=== PATIENT | male | born 1975 | race Caucasian/White ===

== ENCOUNTER → 2017-05-04 | Outpatient (CLI) | payer OTHER ==
--- NOTE | 2017-05-04 15:18 | CT ---
EXAMINATION TYPE: CT abdomen pelvis w con DATE OF EXAM: 05/04/2017 COMPARISON: NONE HISTORY: abdominal pain with diarrhea x10+ years. CT DLP: 1590 mGycm CONTRAST: CT scan of the abdomen and pelvis is performed with Oral Contrast and with IV Contrast, patient injec mirian with 100 mL of Omnipaque 300. FINDINGS: LUNG BASES-: No visible nodule. No infiltrate. LIVER/GB: No calcified gallstones. There is moderate hepatic steatosis. No space occupying hepatic lesion. Biliary tree is of normal caliber. PANCREAS: No inflammation. No distinct mass. SPLEEN: No splenic enlargement. No lesion seen. ADRENALS: No nodule. No thickening. KIDNEYS/BLADDER: No hydronephrosis. No nephrolithiasis. 1.2 cm cyst left kidney. Urinary bladder g rossly unremarkable. BOWEL: Normal appendix. Normal bowel caliber. No inflammation. GENITAL ORGANS: No gross abnormality. LYMPH NODES: No greater than 1cm abdominal or pelvic lymph nodes are appreciated. AORTA: No significant abnormality. OSSEOUS STRUCTURES: No significant abnormality is seen. OTHER: No significant additional abnormality is seen. IMPRESSION: 1. There is moderate hepatic steatosis.
--- NOTE | 2017-05-05 11:00 | ECHOF ---
Referral Reason:R10.9 abdominal pain MEASUREMENTS -------- HEIGHT: 182.9 cm WEIGHT: 99.8 kg BP: 125/79 RVIDd: 3.6 cm (< 3.3) IVSd: 1.1 cm (0.6 - 1.1) LVIDd: 5.0 cm (3.9 - 5.3) LVPWd: 1.1 cm (0.6 - 1.1) IVSs: 1.7 cm LVIDs: 3.6 cm LVPWs: 1.9 cm LA Diam: 3.7 cm (2.7 - 3.8) LAESV Index (A-L): 20.90 ml/m Ao Diam: 3.4 cm (2.0 - 3.7) AV Cusp: 2.6 cm (1.5 - 2.6) MV EXCURSION: 24.403 mm (> 18.000) MV EF SLOPE: 87 mm/s (70 - 150) EPSS: 0.6 cm MV E Vamsi: 0.88 m/s MV DecT: 172 ms MV A Vamsi: 0.68 m/s MV E/A Ratio: 1.29 RAP: 5.00 mmHg RVSP: 29.66 mmHg FINDINGS -------- Sinus rhythm. This was a technically good study. The left ventricular size is normal. There is borderline concentric left ventricular hypertrophy. Overall left ventricular systolic function is normal with, an EF between 55 - 60 %. The right ventricle is mildly enlarged. Normal LA size by volume 22+/-6 ml/m2. The right atrium is normal in size. The aortic valve is trileaflet and appears structurally normal. The mitral valve is normal. There is trace to mild mitral regurgitation. Mild tricuspid regurgitation present. Right ventricular systolic pressure is normal at < 35 mmHg. The pulmonic valve was not well visualized. There is no pulmonic regurgitation present. The aortic root size is normal. IVC Not well visulized. There is no pericardial effusion. CONCLUSIONS -------- 1. Sinus rhythm. 2. Right ventricular systolic pressure is normal at < 35 mmHg. 3. The pulmonic valve was not well visualized. 4. There is no pulmonic regurgitation present. 5. The aortic root size is normal. 6. IVC Not well visulized. 7. There is no pericardial effusion. 8. This was a technically good study. 9. There is borderline concentric left ventricular hypertrophy. 10. Overall left ventricular systolic function is normal with, an EF between 55 - 60 %. 11. The right ventricle is mildly enlarged. 12. Normal LA size by volume 22+/-6 ml/m2. 13. The aortic valve is trileaflet and appears structurally normal. 14. There is trace to mild mitral regurgitation. 15. Mild tricuspid regurgitation present. [employer]: Katia Villegas RDCS
== END | disposition home or self-care (01) ==
LOC: RADCTMAIN 14:29
PROVIDERS: ATTEND Family Medicine
DX: K76.0 Fatty (change of) liver, not elsewhere classified (principal); I08.1 Rheumatic disorders of both mitral and tricuspid valves
CPT/HCPCS: 93306; 74177; Q9967 ×2

== ENCOUNTER 2020-04-23 16:48 | Emergency (ER) | payer OTHER ==
[2020-04-23] MEDS ORDERED: MORPHINE SULFATE 4 MG/ML SYRINGE IV STA ×2 (16:57→18:53)
[2020-04-23] MEDS ORDERED: SODIUM CHLORIDE 0.9% 1,000 ML IV STA (16:57)
[2020-04-23] MEDS ORDERED: ONDANSETRON 4 MG/2 ML VIAL IVP STA (16:57)
[2020-04-23 17:24] LABS: Basophils # (A) 0.1 k/uL (0-0.2); Basophils % (A) 1 %; Eosinophils # (A) 0.1 k/uL (0-0.7); Eosinophils % (A) 1 %; HCT 51.9 % (39.0-53.0); HGB 16.1 gm/dL (13.0-17.5); Lymphocytes # (A) 1.2 k/uL (1.0-4.8); Lymphocytes % (A) 11 %; MCH 29.7 pg (25.0-35.0); MCV 95.7 fL (80.0-100.0); Mean Platelet Volume 8.3; Monocytes # (A) 0.4 k/uL (0-1.0); Monocytes % (A) 3 %; Neutrophils % (A) 83 %; Platelet Count 233 k/uL (150-450); RBC 5.42 m/uL (4.30-5.90); RDW 12.6 % (11.5-15.5); WBC 10.8 k/uL (3.8-10.6)
[2020-04-23 17:37] LABS: ALT 112 U/L (4-49); AST 62 U/L (17-59); African American GFR (CKD) >90 (>60 ml/min/1.73 sqM); Albumin 3.8 g/dL (3.5-5.0); Alkaline Phosphatase 71 U/L (38-126); Anion Gap 6 mmol/L; Blood Urea Nitrogen 12 mg/dL (9-20); Carbon Dioxide 24 mmol/L (22-30); Chloride 108 mmol/L (98-107); Glucose 177 mg/dL (74-99); Non-African American GFR(CKD) 79 (>60 ml/min/1.73 sqM); Potassium 4.1 mmol/L (3.5-5.1); Sodium 138 mmol/L (137-145); Total Bilirubin 0.9 mg/dL (0.2-1.3); Total Protein 5.9 g/dL (6.3-8.2)
--- NOTE | 2020-04-23 18:02 | US ---
EXAMINATION TYPE: US scrotum with doppler. Grayscale and color Doppler Duplex imaging performed of tiara steen scrotum. DATE OF EXAM: 04/23/2020 COMPARISON: CT 2017 CLINICAL HISTORY: pain. Groin pain x couple hours. EXAM MEASUREMENTS: TESTICLES: Right Testicle: 5.0 x 2.7 x 2.6 cm Left Testicle: 4.5 x 2.7 x 2.3 cm EPIDIDYMIS HEAD: Right Epididymis: 0.7 x 0.8 x 0.7 cm Left Epididymis: 0.7 x 1.3 x 1.2 cm Epididymal body and tail appear similar bilaterally, hypoechoic. Doppler performed to assess for testicular vascularity; bilateral color flow and waveforms are seen. Presence of hydroceles: Right: 0.6 x 0.5 x 0.5 cm. Presence of varicoceles: none seen 2 Anechoic areas seen adjacent to the left epididymal head- #1: 0.8 x 0.7 x 0.5 cm. #2: 1.4 x 1.3 x 1.2 cm. IMPRESSION: There is left side epididymal cysts. No testicular torsion or mass. No evidence of epidid ymitis.
[2020-04-23] MEDS ORDERED: KETOROLAC 30 MG/ML 1 ML VIAL IVP STA (19:30)
--- NOTE | 2020-04-23 19:31 | CT ---
EXAMINATION TYPE: CT abdomen pelvis w con DATE OF EXAM: 04/23/2020 COMPARISON: 05/04/2017 HISTORY: left sided abdominal pain CT DLP: 1357.6 mGycm Automated exposure control for dose reduction was used. CONTRAST: Performed with IV Contrast, patient injected with 100 mL of Isovue 300. There is mild subsegmental atelectasis at the lung bases. Heart size is normal. There is no pericardi al effusion. Liver spleen stomach pancreas gallbladder appear normal. Bile ducts are not dilated. There is no adre nal mass. Kidneys show satisfactory contrast opacification. There is a delayed left side pyelogram. T here is mild left-sided hydronephrosis. There is mild left-sided hydroureter. There is 2 cm cortical cyst lower pole left kidney. There is 3 mm calculus distal left ureter close to the urinary bladder. Bladder distends smoothly. There is no inguinal hernia. There is no free fluid in the pelvis. Appendi x is posterior and appears normal. There is no mesenteric edema. There is no ascites or free air. There is no bowel obstruction. There i s probably a 1 mm calculus medial left kidney. There is no retroperitoneal adenopathy. Lumbar vertebr a have normal alignment. I see no focal bone destruction. The bony pelvis appears intact. IMPRESSION: Obstructing small calculus distal left ureter with hydronephrosis and hydroureter. Fatty infiltration of the liver. Obstruction is new compared to old exam. Normal appendix.
[2020-04-23] MEDS ORDERED: TAMSULOSIN 0.4 MG CAP.ER.24H PO STA (19:40)
--- NOTE | 2020-04-23 19:43 | ED ---
General Adult HPI - General Source: patient, RN notes reviewed, old records reviewed Mode of arrival: wheelchair Limitations: no limitations <Khalif Hadley - Last Filed: 04/23/20 20:43> <Yuni Martins - Last Filed: 04/29/20 00:37> - General Chief complaint: Abdominal Pain Stated complaint: abd pain Time Seen by Provider: 04/23/20 16:54 - History of Present Illness Initial comments: 45-year-old male patient was ED for chief complaint of left lower quadrant pain as well as left-sided groin pain. Patient reports that the pain is radiating from the abdomen to the groin. He states that pain began a few hours ago. He reports nausea without emesis. Denies any vomiting or diarrhea. Denies any o ther complaints. Systemic: Pt denies fatigue, fever/chills, rash. Pt denies weakness, night sweats, weight loss. Neuro: Pt denies headache, visual disturbances, syncope or pre-syncope. HEENT: Pt denies ocular discharge or irritation, otalgia, rhinorrhea, pharyngitis or notable lymphadenopathy. Cardiopulmonary: Pt denies chest pain, SOB, heart palpitations, dyspnea on exertion. Abdominal/GI: Pt denies abdominal pain, n/v/d. : Pt denies dysuria, burning w/ urination, frequency/urgency. Denies new onset urinary or bowel incontinence. MSK: Pt denies myalgia, loss of strength or function in extremities. Neuro: Pt denies new onset weakness, paresthesias. (Khalif Hadley) - Related Data Previous Rx's Medication Instructions Recorded Tamsulosin [Flomax] 0.4 mg PO DAILY #10 cap 04/23/20 Acetaminophen with Codeine 1 tab PO Q6H PRN 3 Days #12 tab 04/27/20 [Tylenol w/codeine #3] Ketorolac [Toradol] 10 mg PO Q6HR #12 tab 04/27/20 Ondansetron [Zofran ODT] 4 mg PO Q8HR #12 tab 04/27/20 Polyethylene Glycol 3350 [Miralax] 17 gm PO DAILY #10 packet 04/27/20 Tamsulosin [Flomax] 0.4 mg PO DAILY #10 cap 04/27/20 Allergies Allergy/AdvReac Type Severity Reaction Status Date / Time No Known Allergies Allergy Verified 04/27/20 18:46 Review of Systems ROS Other: All systems not noted in ROS Statement are negative. <Khalif Hadley - Last Filed: 04/23/20 20:43> ROS Other: All systems not noted in ROS Statement are negative. <Yuni Martins - Last Filed: 04/29/20 00:37> ROS Statement: Those systems with pertinent positive or pertinent negative responses have been documented in the HPI. Past Medical History Past Medical History: No Reported History History of Any Multi-Drug Resistant Organisms: None Reported Additional Past Surgical History / Comment(s): SHOULDER SX Past Psychological History: No Psychological Hx Reported Smoking Status: Never smoker Past Alcohol Use History: None Reported Past Drug Use History: None Reported <Khalif Hadley - Last Filed: 04/23/20 20:43> General Exam Limitations: no limitations <Khalif Hadley - Last Filed: 04/23/20 20:43> - General Exam Comments Initial Comments: Constitutional: NAD, AOX3, Pt has pleasant affect. HEENT: NC/AT, trachea midline, neck supple, no lymphadenopathy. Posterior pharynx non erythematous, without exudates. External ears appear normal, without discharge. Mucous membranes moist. Eyes PERRLA, EOM intact. There is no scleral icterus. No pallor noted. Cardiopulmonary: RRR, no murmurs, rubs or gallops, no JVD noted. Lungs CTAB in a nterior and posterior jimenez. No peripheral edema. Abdominal exam: Abdomen soft and non-distended. Abdomen mildly tender to palpation in LLQ. No other areas of abdominal tenderness. Bowel sounds active in LLQ. No hepatosplenomegaly. No ecchymosis Neuro: CN II-XII grossly intact. No nuchal rigidity. No raccon eyes, no villalobos sign, no hemotympanum. No cervical spinal tenderness. MSK: No posterior calf tenderness bilaterally, homans sign negative bilaterally. Full active ROM in upper and lower extremities, 5/5 stregnth. : Testicles nontender palpation bilaterally. Creamesteric reflex intact. No skin changes. (Khalif Hadley) Course Vital Signs 04/23/20 04/23/20 16:51 20:58 Temperature 97.6 F 97.9 F Pulse Rate 79 68 Respiratory 16 18 Rate Blood Pressure 130/78 137/80 O2 Sat by Pulse 97 98 Oximetry Medical Decision Making - Lab Data Result diagrams: 04/23/20 17:15 04/23/20 17:15 <Khalif Hadley - Last Filed: 04/23/20 20:43> - Lab Data Result diagrams: 04/23/20 17:15 04/23/20 17:15 <Yuni Martins - Last Filed: 04/29/20 00:37> - Medical Decision Making 45-year-old male patient was ED chief complaint left lower quadrant left groin pain. Patient also had a stable, afebrile. Physical exam displayed left lower quadrant tenderness. Testicles are nontender, significant flight is intact. Patient reports that the pain is rather radiating down the testicles. Lymph investigations obtained. Monocytosis of 10.8. Mild elevated glucose. Mild transaminitis. UA doesdisplay hematuria. Scrotal ultrasound was obtained first. This displayed left-sided epididymal cyst. No testicular torsion or mass. No evidence of epididymitis. CT and pelvis displayed obstructing small calculi distal left ureter with hydronephrosis and hydroureter. Patient lfatty infiltrationof the liver. Patient symptoms are well controlled. Patient was discharged with analgesia and urology follow-up and Flomax. We'll return to ER if condition worsens. Case discussed with Dr. Martins. (Khalif Hadley) I was available for consultation in the emergency department. The history and physical exam were done by the midlevel provider. I was consulted for this avel ents care. I reviewed the case with the midlevel provider and based on their presentation of the patient, I agree with the assessment, medical decision making and plan of care as documented. Chart was dictated using [employer] dictation software. Attempts were made to correct any dictation errors however some typographical errors may persist. Patient was seen during a national state of emergency due to the Covid-19 pandemic. (Yuni Martins) - Lab Data Lab Results 04/23/20 04/23/20 04/23/20 Range/Units 17:15 17:15 17:15 WBC 10.8 H (3.8-10.6) k/uL RBC 5.42 (4.30-5.90) m/uL Hgb 16.1 (13.0-17.5) gm/dL Hct 51.9 (39.0-53.0) % MCV 95.7 (80.0-100.0) fL MCH 29.7 (25.0-35.0) pg MCHC 31.0 (31.0-37.0) g/dL RDW 12.6 (11.5-15.5) % Plt Count 233 (150-450) k/uL Neutrophils % 83 % Lymphocytes % 11 % Monocytes % 3 % Eosinophils % 1 % Basophils % 1 % Neutrophils # 9.0 H (1.3-7.7) k/uL Lymphocytes # 1.2 (1.0-4.8) k/uL Monocytes # 0.4 (0-1.0) k/uL Eosinophils # 0.1 (0-0.7) k/uL Basophils # 0.1 (0-0.2) k/uL Sodium 138 (137-145) mmol/L Potassium 4.1 (3.5-5.1) mmol/L Chloride 108 H (98-107) mmol/L Carbon Dioxide 24 (22-30) mmol/L Anion Gap 6 mmol/L BUN 12 (9-20) mg/dL Creatinine 1.13 (0.66-1.25) mg/dL Est GFR (CKD-EPI)AfAm >90 (>60 ml/min/1.73 sqM) Est GFR (CKD-EPI)NonAf 79 (>60 ml/min/1.73 sqM) Glucose 177 H (74-99) mg/dL Plasma Lactic Acid Jam 1.1 (0.7-2.0) mmol/L Calcium 9.0 (8.4-10.2) mg/dL Total Bilirubin 0.9 (0.2-1.3) mg/dL AST 62 H (17-59) U/L ALT 112 H (4-49) U/L Alkaline Phosphatase 71 (38-126) U/L Total Protein 5.9 L (6.3-8.2) g/dL Albumin 3.8 (3.5-5.0) g/dL Lipase 59 (23-300) U/L Urine Color Urine Appearance (Clear) Urine pH (5.0-8.0) Ur Specific [place] (1.001-1.035) Urine Protein (Negative) Urine Glucose (UA) (Negative) Urine Ketones (Negative) Urine Blood (Negative) Urine Nitrite (Negative) Urine Bilirubin (Negative) Urine Urobilinogen (<2.0) mg/dL Ur Leukocyte Esterase (Negative) Urine RBC (0-5) /hpf Urine WBC (0-5) /hpf Urine Mucus (None) /hpf 04/23/20 Range/Units 19:50 WBC (3.8-10.6) k/uL RBC (4.30-5.90) m/uL Hgb (13.0-17.5) gm/dL Hct (39.0-53.0) % MCV (80.0-100.0) fL MCH (25.0-35.0) pg MCHC (31.0-37.0) g/dL RDW (11.5-15.5) % Plt Count (150-450) k/uL Neutrophils % % Lymphocytes % % Monocytes % % Eosinophils % % Basophils % % Neutrophils # (1.3-7.7) k/uL Lymphocytes # (1.0-4.8) k/uL Monocytes # (0-1.0) k/uL Eosinophils # (0-0.7) k/uL Basophils # (0-0.2) k/uL Sodium (137-145) mmol/L Potassium (3.5-5.1) mmol/L Chloride (98-107) mmol/L Carbon Dioxide (22-30) mmol/L Anion Gap mmol/L BUN (9-20) mg/dL Creatinine (0.66-1.25) mg/dL Est GFR (CKD-EPI)AfAm (>60 ml/min/1.73 sqM) Est GFR (CKD-EPI)NonAf (>60 ml/min/1.73 sqM) Glucose (74-99) mg/dL Plasma Lactic Acid Jam (0.7-2.0) mmol/L Calcium (8.4-10.2) mg/dL Total Bilirubin (0.2-1.3) mg/dL AST (17-59) U/L ALT (4-49) U/L Alkaline Phosphatase (38-126) U/L Total Protein (6.3-8.2) g/dL Albumin (3.5-5.0) g/dL Lipase (23-300) U/L Urine Color Yellow Urine Appearance Clear (Clear) Urine pH 7.0 (5.0-8.0) Ur Specific [place] 1.032 (1.001-1.035) Urine Protein Negative (Negative) Urine Glucose (UA) Trace H (Negative) Urine Ketones 1+ H (Negative) Urine Blood Moderate H (Negative) Urine Nitrite Negative (Negative) Urine Bilirubin Negative (Negative) Urine Urobilinogen <2.0 (<2.0) mg/dL Ur Leukocyte Esterase Negative (Negative) Urine RBC >182 H (0-5) /hpf Urine WBC 1 (0-5) /hpf Urine Mucus Few H (None) /hpf Disposition Is patient prescribed a controlled substance at d/c from ED?: No <Khalif Hadley - Last Filed: 04/23/20 20:43> <Yuni Martins - Last Filed: 04/29/20 00:37> Clinical Impression: Ureteral calculi, Fatty liver, Elevated random blood glucose level Disposition: HOME SELF-CARE Condition: Stable Instructions (If sedation given, give patient instructions): Kidney Stones (ED) Additional Instructions: Follow-up with primary care provider tomorrow. Follow-up with urologist tomorrow. Take medications as directed. Use pain medication only as needed. Have recheck of your liver function tests as well as her blood sugar by her primary care provider. These are mildly elevated. Return to ER if condition worsens. Prescriptions: Tamsulosin [Flomax] 0.4 mg PO DAILY #10 cap Referrals: None,Stated [Primary Care Provider] - 1-2 days Anuel Chris [STAFF PHYSICIAN] - 1-2 days Tashi Josue MD [STAFF PHYSICIAN] - 1-2 days
[2020-04-23 20:09] LABS: Appearance,Urine Clear (Clear); Bilirubin,Urine Negative (Negative); Blood,Urine Moderate (Negative); Color,Urine Yellow; Glucose,Urine (UA) Trace (Negative); Ketones,Urine 1+ (Negative); Leukocyte Esterase,Urine Negative (Negative); Mucus,Urine Few /hpf; Nitrite,Urine Negative (Negative); Protein,Urine Negative (Negative); RBC,Urine >182 /hpf (0-5); Specific Gravity,Urine 1.032 (1.001-1.035); Urobilinogen,Urine <2.0 mg/dL (<2.0); WBC,Urine 1 /hpf (0-5)
[2020-04-23] MEDS ORDERED: ONDANSETRON 4 MG ODT STARTER PACK 2 TAB BTL PO STA (20:45)
[2020-04-23] MEDS ORDERED: ACET/COD 300 MG/30 MG STARTER PACK 6 TAB BTL PO STA (20:45)
[2020-04-23 20:59] VITALS: BP 137/80; PULSE 68; RESP 18; TEMP 97.9
== END 2020-04-23 20:59 | disposition home or self-care (01) ==
LOC: EC 16:48
DX: N13.2 Hydronephrosis with renal and ureteral calculous obstruction (principal); K76.0 Fatty (change of) liver, not elsewhere classified; R74.0 Nonspecific elevation of levels of transaminase and lactic acid dehydrogenase [LDH]; R73.9 Hyperglycemia, unspecified
CPT/HCPCS: 36415; 80053; 83605; 83690; 85025; 81001; 93975; 76870; 74177; 99285; 96374; 96375 ×2; 96376; 96361; J2270; J2405; J1885; S0119; Q9967

== ENCOUNTER 2020-04-27 18:37 | Emergency (ER) | payer OTHER ==
[2020-04-27 18:46] VITALS: TEMP 97.6
[2020-04-27] MEDS ORDERED: SODIUM CHLORIDE 0.9% 1,000 ML IV STA (19:30)
[2020-04-27] MEDS ORDERED: MORPHINE SULFATE 4 MG/ML SYRINGE IVP STA (19:30)
[2020-04-27] MEDS ORDERED: KETOROLAC 30 MG/ML 1 ML VIAL IVP STA (19:30)
[2020-04-27] MEDS ORDERED: MORPHINE SULFATE 2 MG/ML SYRINGE IVP STA (19:30)
[2020-04-27 19:49] LABS: Appearance,Urine Clear (Clear); Bilirubin,Urine Negative (Negative); Blood,Urine Moderate (Negative); Color,Urine Yellow; Glucose,Urine (UA) Negative (Negative); Ketones,Urine Negative (Negative); Leukocyte Esterase,Urine Negative (Negative); Mucus,Urine Many /hpf; Nitrite,Urine Negative (Negative); PH, Urine 5.5 (5.0-8.0); Protein,Urine Negative (Negative); RBC,Urine >182 /hpf (0-5); Specific Gravity,Urine 1.012 (1.001-1.035); Urobilinogen,Urine <2.0 mg/dL (<2.0); WBC,Urine 5 /hpf (0-5)
[2020-04-27 19:55] VITALS: PULSE 82; RESP 18
[2020-04-27 20:00] LABS: Basophils # (A) 0.1 k/uL (0-0.2); Basophils % (A) 1 %; Eosinophils # (A) 0.2 k/uL (0-0.7); Eosinophils % (A) 2 %; HCT 47.3 % (39.0-53.0); HGB 15.1 gm/dL (13.0-17.5); Lymphocytes # (A) 1.2 k/uL (1.0-4.8); Lymphocytes % (A) 12 %; MCH 30.7 pg (25.0-35.0); MCHC 31.9 g/dL (31.0-37.0); MCV 96.4 fL (80.0-100.0); Mean Platelet Volume 8.1; Monocytes # (A) 0.6 k/uL (0-1.0); Monocytes % (A) 5 %; Neutrophils # (A) 8.4 k/uL (1.3-7.7); Neutrophils % (A) 80 %; Platelet Count 205 k/uL (150-450); RBC 4.91 m/uL (4.30-5.90); RDW 12.3 % (11.5-15.5); WBC 10.5 k/uL (3.8-10.6)
[2020-04-27 20:09] LABS: ALT 97 U/L (4-49); AST 66 U/L (17-59); African American GFR (CKD) >90 (>60 ml/min/1.73 sqM); Alkaline Phosphatase 77 U/L (38-126); Amylase 54 U/L (30-110); Anion Gap 8 mmol/L; Blood Urea Nitrogen 10 mg/dL (9-20); Calcium 8.8 mg/dL (8.4-10.2); Carbon Dioxide 24 mmol/L (22-30); Chloride 106 mmol/L (98-107); Glucose 98 mg/dL (74-99); Non-African American GFR(CKD) >90 (>60 ml/min/1.73 sqM); Potassium 4.1 mmol/L (3.5-5.1); Sodium 138 mmol/L (137-145); Total Bilirubin 0.9 mg/dL (0.2-1.3); Total Protein 6.2 g/dL (6.3-8.2)
--- NOTE | 2020-04-27 20:15 | ED ---
Abdominal Pain HPI - General Chief Complaint: Abdominal Pain Stated Complaint: kidney stone Time Seen by Provider: 04/27/20 18:51 Source: patient, RN notes reviewed, old records reviewed Mode of arrival: wheelchair Limitations: no limitations - History of Present Illness Initial Comments: 45-year-old male presents very sensitive complaints of left-sided flank pain and groin discomfort. Patient was seen last week for similar complaints as diagnosed with a left ureter stone. He reports that he was pain-free and doing well up until today. Patient reports that he did pass her stones throughout the week. He was placed on Flomax and Tylenol or Motrin for pain. Patient states that he's been trying to have normal bowel movements and increasing his fiber and fruit prune juice and apple juice intake. He states he does feel quite bloated as well. Patient denies any vomiting. - Related Data Previous Rx's Medication Instructions Recorded Tamsulosin [Flomax] 0.4 mg PO DAILY #10 cap 04/23/20 Acetaminophen with Codeine 1 tab PO Q6H PRN 3 Days #12 tab 04/27/20 [Tylenol w/codeine #3] Ketorolac [Toradol] 10 mg PO Q6HR #12 tab 04/27/20 Ondansetron [Zofran ODT] 4 mg PO Q8HR #12 tab 04/27/20 Polyethylene Glycol 3350 [Miralax] 17 gm PO DAILY #10 packet 04/27/20 Tamsulosin [Flomax] 0.4 mg PO DAILY #10 cap 04/27/20 Allergies Allergy/AdvReac Type Severity Reaction Status Date / Time No Known Allergies Allergy Verified 04/27/20 18:46 Review of Systems ROS Statement: Those systems with pertinent positive or pertinent negative responses have been documented in the HPI. ROS Other: All systems not noted in ROS Statement are negative. Past Medical History Past Medical History: No Reported History History of Any Multi-Drug Resistant Organisms: None Reported Additional Past Surgical History / Comment(s): SHOULDER SX Past Psychological History: No Psychological Hx Reported Smoking Status: Never smoker Past Alcohol Use History: None Reported Past Drug Use History: None Reported General Exam - General Exam Comments Initial Comments: 45 year old male, no distress. Limitations: no limitations General appearance: alert, in no apparent distress Head exam: Present: atraumatic, normocephalic, normal inspection Eye exam: Present: normal appearance, PERRL, EOMI. Absent: scleral icterus, conjunctival injection, periorbital swelling ENT exam: Present: normal exam, mucous membranes moist Neck exam: Present: normal inspection. Absent: tenderness, meningismus, lymphadenopathy Respiratory exam: Present: normal lung sounds bilaterally. Absent: respiratory distress, wheezes, rales, rhonchi, stridor Cardiovascular Exam: Present: regular rate, normal rhythm, normal heart sounds. Absent: systolic murmur, diastolic murmur, rubs, gallop, clicks GI/Abdominal exam: Present: soft, tenderness (Left inguinal and lower quadrant tenderness no palpable masses or hernia.), normal bowel sounds. Absent: dist ended, guarding, rebound, rigid Back exam: Present: normal inspection Neurological exam: Present: alert, oriented X3, CN II-XII intact Course Vital Signs 04/27/20 04/27/20 04/27/20 18:42 19:54 20:54 Temperature 97.6 F 97.6 F Pulse Rate 68 82 82 Respiratory 16 18 18 Rate Blood Pressure 132/86 133/85 127/84 O2 Sat by Pulse 97 99 98 Oximetry Medical Decision Making - Medical Decision Making 45-year-old male presented to return today with left flank pain and groin pain. He was diagnosed with kidney stones last week. He was found to have a 1 mm stone retained in the kidney at that time on his CAT scan. Today Patient has evidence of hematuria. Labs are otherwise unremarkable. Discussed is likely passing a 1 mm stone that was found on previous CAT scan. KUB is unremarkable. I discussed discharging the Patient with a short course a temperature medication continue Flomax and pain medication. Discussed following up with urology. All questions were answered. - Lab Data Result diagrams: 04/27/20 19:51 04/27/20 19:51 Lab Results 04/27/20 04/27/20 04/27/20 Range/Units 19:21 19:51 19:51 WBC 10.5 (3.8-10.6) k/uL RBC 4.91 (4.30-5.90) m/uL Hgb 15.1 (13.0-17.5) gm/dL Hct 47.3 (39.0-53.0) % MCV 96.4 (80.0-100.0) fL MCH 30.7 (25.0-35.0) pg MCHC 31.9 (31.0-37.0) g/dL RDW 12.3 (11.5-15.5) % Plt Count 205 (150-450) k/uL Neutrophils % 80 % Lymphocytes % 12 % Monocytes % 5 % Eosinophils % 2 % Basophils % 1 % Neutrophils # 8.4 H (1.3-7.7) k/uL Lymphocytes # 1.2 (1.0-4.8) k/uL Monocytes # 0.6 (0-1.0) k/uL Eosinophils # 0.2 (0-0.7) k/uL Basophils # 0.1 (0-0.2) k/uL PT 9.8 (9.0-12.0) sec INR 0.9 (<1.2) APTT 21.3 L (22.0-30.0) sec Sodium (137-145) mmol/L Potassium (3.5-5.1) mmol/L Chloride (98-107) mmol/L Carbon Dioxide (22-30) mmol/L Anion Gap mmol/L BUN (9-20) mg/dL Creatinine (0.66-1.25) mg/dL Est GFR (CKD-EPI)AfAm (>60 ml/min/1.73 sqM) Est GFR (CKD-EPI)NonAf (>60 ml/min/1.73 sqM) Glucose (74-99) mg/dL Calcium (8.4-10.2) mg/dL Total Bilirubin (0.2-1.3) mg/dL AST (17-59) U/L ALT (4-49) U/L Alkaline Phosphatase (38-126) U/L Total Protein (6.3-8.2) g/dL Albumin (3.5-5.0) g/dL Amylase (30-110) U/L Lipase (23-300) U/L Urine Color Yellow Urine Appearance Clear (Clear) Urine pH 5.5 (5.0-8.0) Ur Specific [place] 1.012 (1.001-1.035) Urine Protein Negative (Negative) Urine Glucose (UA) Negative (Negative) Urine Ketones Negative (Negative) Urine Blood Moderate H (Negative) Urine Nitrite Negative (Negative) Urine Bilirubin Negative (Negative) Urine Urobilinogen <2.0 (<2.0) mg/dL Ur Leukocyte Esterase Negative (Negative) Urine RBC >182 H (0-5) /hpf Urine WBC 5 (0-5) /hpf Urine Mucus Many H (None) /hpf 04/27/20 Range/Units 19:51 WBC (3.8-10.6) k/uL RBC (4.30-5.90) m/uL Hgb (13.0-17.5) gm/dL Hct (39.0-53.0) % MCV (80.0-100.0) fL MCH (25.0-35.0) pg MCHC (31.0-37.0) g/dL RDW (11.5-15.5) % Plt Count (150-450) k/uL Neutrophils % % Lymphocytes % % Monocytes % % Eosinophils % % Basophils % % Neutrophils # (1.3-7.7) k/uL Lymphocytes # (1.0-4.8) k/uL Monocytes # (0-1.0) k/uL Eosinophils # (0-0.7) k/uL Basophils # (0-0.2) k/uL PT (9.0-12.0) sec INR (<1.2) APTT (22.0-30.0) sec Sodium 138 (137-145) mmol/L Potassium 4.1 (3.5-5.1) mmol/L Chloride 106 (98-107) mmol/L Carbon Dioxide 24 (22-30) mmol/L Anion Gap 8 mmol/L BUN 10 (9-20) mg/dL Creatinine 0.99 (0.66-1.25) mg/dL Est GFR (CKD-EPI)AfAm >90 (>60 ml/min/1.73 sqM) Est GFR (CKD-EPI)NonAf >90 (>60 ml/min/1.73 sqM) Glucose 98 (74-99) mg/dL Calcium 8.8 (8.4-10.2) mg/dL Total Bilirubin 0.9 (0.2-1.3) mg/dL AST 66 H (17-59) U/L ALT 97 H (4-49) U/L Alkaline Phosphatase 77 (38-126) U/L Total Protein 6.2 L (6.3-8.2) g/dL Albumin 4.0 (3.5-5.0) g/dL Amylase 54 (30-110) U/L Lipase 97 (23-300) U/L Urine Color Urine Appearance (Clear) Urine pH (5.0-8.0) Ur Specific [place] (1.001-1.035) Urine Protein (Negative) Urine Glucose (UA) (Negative) Urine Ketones (Negative) Urine Blood (Negative) Urine Nitrite (Negative) Urine Bilirubin (Negative) Urine Urobilinogen (<2.0) mg/dL Ur Leukocyte Esterase (Negative) Urine RBC (0-5) /hpf Urine WBC (0-5) /hpf Urine Mucus (None) /hpf 04/27/20 20:16 EKG performed shows normal sinus rhythm nonspecific intraventricular block. Abnormal EKG. Ventricular rate of 64 bpm. Verbal is 1:30 milliseconds. QRS duration is 134 ms. QT QTc is 464/470 ms. - Radiology Data Radiology results: report reviewed KUB shows a nonacute abdomen. CT shows There is a 3 mm calculus in the distal left ureter close to the urinary bladder. There is a 1 mm calculus in the left kidney. Disposition Clinical Impression: Hematuria, Flank pain, Ureteral stone Disposition: HOME SELF-CARE Condition: Good Instructions (If sedation given, give patient instructions): Hematuria (ED) Additional Instructions: Please use medication as discussed. Please follow up with family doctor if symp toms have not improved over the next two days. Please return to the emergency room if your symptoms increase or worsen or for any other concerns. Also recommended follow-up with urology. Continue to take prune juices and stool softeners for bowel movements. Prescriptions: Tamsulosin [Flomax] 0.4 mg PO DAILY #10 cap Polyethylene Glycol 3350 [Miralax] 17 gm PO DAILY #10 packet Ketorolac [Toradol] 10 mg PO Q6HR #12 tab Acetaminophen with Codeine [Tylenol w/codeine #3] 1 tab PO Q6H PRN 3 Days #12 tab PRN Reason: Pain Ondansetron [Zofran ODT] 4 mg PO Q8HR #12 tab Is patient prescribed a controlled substance at d/c from ED?: No Referrals: None,Stated [Primary Care Provider] - 1-2 days Tashi Josue MD [STAFF PHYSICIAN] - 1-2 days Time of Disposition: 20:45
[2020-04-27 20:24] LABS: INR 0.9 (<1.2); Prothrombin Time 9.8 sec (9.0-12.0)
[2020-04-27 20:28] LABS: Partial Thromboplastin Time 21.3 sec (22.0-30.0)
--- NOTE | 2020-04-27 20:32 | XR ---
EXAMINATION TYPE: XR KUB DATE OF EXAM: 04/27/2020 COMPARISON: NONE HISTORY: Left flank pain TECHNIQUE: 2 views upright FINDINGS: There is no sign of intestinal obstruction or pneumoperitoneum. Fecal pattern is normal. Th ere are no pathologic calcifications over the kidneys. Lung bases are clear. There is no evidence of a mass. IMPRESSION: Nonacute abdomen.
[2020-04-27 20:57] VITALS: BP 127/84
[2020-04-27] MEDS ORDERED: ONDANSETRON 4 MG ODT STARTER PACK 2 TAB BTL PO STA (21:01)
[2020-04-27] MEDS ORDERED: ACET/COD 300 MG/30 MG STARTER PACK 6 TAB BTL PO STA (21:02)
== END 2020-04-27 21:05 | disposition home or self-care (01) ==
LOC: EC 18:37
DX: N20.1 Calculus of ureter (principal)
CPT/HCPCS: 36415; 93005; 80053; 82150; 83690; 85025; 85610; 85730; 81001; 74018; 99284; 96374; 96375; 96361; J2270; J1885; S0119

== ENCOUNTER 2021-02-11 20:56 | Inpatient (IN) | payer OTHER ==
[2021-02-11] MEDS ORDERED: KETOROLAC 15 MG/ML 1 ML VIAL IVP STA (21:57)
[2021-02-11] MEDS ORDERED: ACETAMINOPHEN TAB 500 MG TAB PO STA (21:57)
[2021-02-11] MEDS ORDERED: ALBUTEROL HFA INHALER INHALATION STA (21:57)
[2021-02-11] MEDS ORDERED: DEXAMETHASONE SOD PHOSPHATE 10 MG/ML 1 ML VIAL IV STA (21:57)
[2021-02-11] MEDS ORDERED: SODIUM CHLORIDE 0.9% 1,000 ML IV STA (21:57)
--- NOTE | 2021-02-11 22:11 | ED ---
SOB HPI - General Chief Complaint: Shortness of Breath Stated Complaint: COVID+,SOB Time Seen by Provider: 02/11/21 21:52 Source: patient, RN notes reviewed, old records reviewed Mode of arrival: ambulatory Limitations: no limitations - History of Present Illness Initial Comments: This is a 46-year-old male DF for evaluation patient believes she is about 10-12 days of shortness of breath weakness not feeling well believes he does have coronavirus. MD Complaint: shortness of breath -: week(s) Radiation: back Severity: severe Severity scale (1-10): 9 Quality: dull Consistency: constant Improves With: nothing Worsens With: exertion, movement, coughing, inspiration Known History Of: other (none) Context: recent illness (suspects COVID) Associated Symptoms: cough, sputum production, nausea/vomiting Treatments Prior to Arrival: oxygen - Related Data Home Medications Medication Instructions Recorded Confirmed Ascorbic Acid [Vitamin C] 1,000 mg PO DAILY 02/11/21 02/11/21 Allergies Allergy/AdvReac Type Severity Reaction Status Date / Time No Known Allergies Allergy Verified 02/11/21 22:21 Review of Systems ROS Statement: Those systems with pertinent positive or pertinent negative responses have been documented in the HPI. ROS Other: All systems not noted in ROS Statement are negative. Past Medical History Past Medical History: No Reported History History of Any Multi-Drug Resistant Organisms: None Reported Additional Past Surgical History / Comment(s): SHOULDER SX Past Psychological History: No Psychological Hx Reported Smoking Status: Never smoker Past Alcohol Use History: None Reported Past Drug Use History: None Reported General Exam Limitations: no limitations General appearance: alert, anxious, lethargic, in distress Head exam: Present: atraumatic, normocephalic, normal inspection Eye exam: Present: normal appearance, PERRL, EOMI. Absent: scleral icterus, conjunctival injection, periorbital swelling ENT exam: Present: normal exam, mucous membranes moist Neck exam: Present: normal inspection. Absent: tenderness, meningismus, lymphadenopathy Respiratory exam: Present: respiratory distress, accessory muscle use, decreased breath sounds, prolonged expiratory. Absent: wheezes, rales, rhonchi, stridor Cardiovascular Exam: Present: normal rhythm, tachycardia, normal heart sounds. Absent: systolic murmur, diastolic murmur, rubs, gallop, clicks GI/Abdominal exam: Present: soft, normal bowel sounds. Absent: distended, tende rness, guarding, rebound, rigid Extremities exam: Present: normal inspection, full ROM, normal capillary refill. Absent: tenderness, pedal edema, joint swelling, calf tenderness Back exam: Present: normal inspection Neurological exam: Present: alert, oriented X3, CN II-XII intact Psychiatric exam: Present: normal affect, normal mood Skin exam: Present: warm, dry, intact, normal color. Absent: rash Course Vital Signs 02/11/21 02/11/21 02/11/21 21:20 21:59 23:00 Temperature 98.1 F 100.4 F H Pulse Rate 133 H 115 H Respiratory 26 H 26 H 20 Rate Blood Pressure 134/80 134/88 O2 Sat by Pulse 84 L 93 L Oximetry - Reevaluation(s) Reevaluation #1: 02/11/21 22:09 Medical record is reviewed Reevaluation #2: 02/12/21 00:57 Oxygen improved with supplemental to the patient still remains in severe distress Reevaluation #3: 02/12/21 00:58 A shunt placed on supplemental O2 and maintaining oxygen saturation - Consultations Consultation #1: Spoke with sound who will admit this patient Medical Decision Making - Medical Decision Making 46 male is coronavirus positive coronavirus with pneumonia and hypoxia. Patient will be admitted for supportive care - Lab Data Result diagrams: 02/11/21 22:40 02/11/21 22:40 Lab Results 02/11/21 02/11/21 02/11/21 Range/Units 21:41 22:40 22:40 WBC 13.2 H (3.8-10.6) k/uL RBC 4.86 (4.30-5.90) m/uL Hgb 14.2 (13.0-17.5) gm/dL Hct 46.2 (39.0-53.0) % MCV 95.2 (80.0-100.0) fL MCH 29.2 (25.0-35.0) pg MCHC 30.7 L (31.0-37.0) g/dL RDW 14.2 (11.5-15.5) % Plt Count 715 H (150-450) k/uL MPV 7.4 Neutrophils % 84 % Lymphocytes % 10 % Monocytes % 4 % Eosinophils % 0 % Basophils % 1 % Neutrophils # 11.0 H (1.3-7.7) k/uL Lymphocytes # 1.3 (1.0-4.8) k/uL Monocytes # 0.6 (0-1.0) k/uL Eosinophils # 0.0 (0-0.7) k/uL Basophils # 0.1 (0-0.2) k/uL Hypochromasia Slight PT 10.3 (9.0-12.0) sec INR 1.0 (<1.2) APTT 22.3 (22.0-30.0) sec D-Dimer 2.01 H (<0.60) mg/L FEU Sodium (137-145) mmol/L Potassium (3.5-5.1) mmol/L Chloride (98-107) mmol/L Carbon Dioxide (22-30) mmol/L Anion Gap mmol/L BUN (9-20) mg/dL Creatinine (0.66-1.25) mg/dL Est GFR (CKD-EPI)AfAm (>60 ml/min/1.73 sqM) Est GFR (CKD-EPI)NonAf (>60 ml/min/1.73 sqM) Glucose (74-99) mg/dL Plasma Lactic Acid Jam (0.7-2.0) mmol/L Calcium (8.4-10.2) mg/dL Magnesium (1.6-2.3) mg/dL Total Bilirubin (0.2-1.3) mg/dL AST (17-59) U/L ALT (4-49) U/L Alkaline Phosphatase (38-126) U/L Lactate Dehydrogenase (313-618) U/L C-Reactive Protein (<1.0) mg/dL Total Protein (6.3-8.2) g/dL Albumin (3.5-5.0) g/dL Influenza Type A (PCR) Not Detected (Not Detectd) Influenza Type B (PCR) Not Detected (Not Detectd) RSV (PCR) Not Detected (Not Detectd) SARS-CoV-2 (PCR) Not Detected (Not Detectd) 02/11/21 02/11/21 Range/Units 22:40 22:40 WBC (3.8-10.6) k/uL RBC (4.30-5.90) m/uL Hgb (13.0-17.5) gm/dL Hct (39.0-53.0) % MCV (80.0-100.0) fL MCH (25.0-35.0) pg MCHC (31.0-37.0) g/dL RDW (11.5-15.5) % Plt Count (150-450) k/uL MPV Neutrophils % % Lymphocytes % % Monocytes % % Eosinophils % % Basophils % % Neutrophils # (1.3-7.7) k/uL Lymphocytes # (1.0-4.8) k/uL Monocytes # (0-1.0) k/uL Eosinophils # (0-0.7) k/uL Basophils # (0-0.2) k/uL Hypochromasia PT (9.0-12.0) sec INR (<1.2) APTT (22.0-30.0) sec D-Dimer (<0.60) mg/L FEU Sodium 135 L (137-145) mmol/L Potassium 4.2 (3.5-5.1) mmol/L Chloride 100 (98-107) mmol/L Carbon Dioxide 25 (22-30) mmol/L Anion Gap 10 mmol/L BUN 15 (9-20) mg/dL Creatinine 0.71 (0.66-1.25) mg/dL Est GFR (CKD-EPI)AfAm >90 (>60 ml/min/1.73 sqM) Est GFR (CKD-EPI)NonAf >90 (>60 ml/min/1.73 sqM) Glucose 237 H (74-99) mg/dL Plasma Lactic Acid Jam 2.4 H* (0.7-2.0) mmol/L Calcium 8.1 L (8.4-10.2) mg/dL Magnesium 2.3 (1.6-2.3) mg/dL Total Bilirubin 0.7 (0.2-1.3) mg/dL AST 71 H (17-59) U/L ALT 115 H (4-49) U/L Alkaline Phosphatase 260 H (38-126) U/L Lactate Dehydrogenase 1544 H (313-618) U/L C-Reactive Protein 4.0 H (<1.0) mg/dL Total Protein 6.9 (6.3-8.2) g/dL Albumin 3.3 L (3.5-5.0) g/dL Influenza Type A (PCR) (Not Detectd) Influenza Type B (PCR) (Not Detectd) RSV (PCR) (Not Detectd) SARS-CoV-2 (PCR) (Not Detectd) - EKG Data -: EKG Interpreted by Me (EKG shows sinus tachycardia 131 MN 124 QRS 120 QTc 478) - Radiology Data Radiology results: report reviewed (Chest x-ray significant for are type pneu monia consistent with coronavirus symptoms. CTA pending), image reviewed Critical Care Time Critical Care Time: Yes Total Critical Care Time: 31 Disposition Clinical Impression: Acute respiratory failure, Hypoxia, Coronavirus infection, Pneumonia due to COVID-19 virus Disposition: ADMITTED IP TO THIS HOSP Condition: Serious Is patient prescribed a controlled substance at d/c from ED?: No Referrals: None,Stated [Primary Care Provider] - 1-2 days
--- NOTE | 2021-02-11 22:13 | XR ---
EXAMINATION TYPE: XR chest 1V portable DATE OF EXAM: 02/11/2021 COMPARISON: NONE HISTORY: Short of breath TECHNIQUE: Single view FINDINGS: There is extensive bilateral pulmonary airspace infiltrates. This is more severe in the lef t midlung and the right upper lobe. Heart size is normal. There is no pleural effusion. IMPRESSION: Extensive pulmonary infiltrates consistent with RDS.
[2021-02-11 22:56] LABS: Basophils # (A) 0.1 k/uL (0-0.2); Basophils % (A) 1 %; Eosinophils % (A) 0 %; HCT 46.2 % (39.0-53.0); HGB 14.2 gm/dL (13.0-17.5); Hypochromasia Slight; Lymphocytes # (A) 1.3 k/uL (1.0-4.8); Lymphocytes % (A) 10 %; MCH 29.2 pg (25.0-35.0); MCHC 30.7 g/dL (31.0-37.0); MCV 95.2 fL (80.0-100.0); Mean Platelet Volume 7.4; Monocytes # (A) 0.6 k/uL (0-1.0); Monocytes % (A) 4 %; Neutrophils % (A) 84 %; Platelet Count 715 k/uL (150-450); RBC 4.86 m/uL (4.30-5.90); RDW 14.2 % (11.5-15.5); WBC 13.2 k/uL (3.8-10.6)
[2021-02-11 22:57] LABS: ALT 115 U/L (4-49); AST 71 U/L (17-59); African American GFR (CKD) >90 (>60 ml/min/1.73 sqM); Albumin 3.3 g/dL (3.5-5.0); Alkaline Phosphatase 260 U/L (38-126); Anion Gap 10 mmol/L; Blood Urea Nitrogen 15 mg/dL (9-20); Calcium 8.1 mg/dL (8.4-10.2); Carbon Dioxide 25 mmol/L (22-30); Chloride 100 mmol/L (98-107); Glucose 237 mg/dL (74-99); LDH 1544 U/L (313-618); Magnesium 2.3 mg/dL (1.6-2.3); Non-African American GFR(CKD) >90 (>60 ml/min/1.73 sqM); Potassium 4.2 mmol/L (3.5-5.1); Sodium 135 mmol/L (137-145); Total Bilirubin 0.7 mg/dL (0.2-1.3); Total Protein 6.9 g/dL (6.3-8.2)
[2021-02-11 23:04] LABS: Partial Thromboplastin Time 22.3 sec (22.0-30.0); Prothrombin Time 10.3 sec (9.0-12.0)
[2021-02-11 23:31] LABS: D-Dimer 2.01 mg/L FEU (<0.60)
[2021-02-12] MEDS ORDERED: ONDANSETRON 4 MG/2 ML VIAL IVP PRN (00:55)
[2021-02-12] MEDS ORDERED: NALOXONE 0.4 MG/ML 1 ML VIAL IV PRN (00:55)
[2021-02-12] MEDS ORDERED: IBUPROFEN 400 MG TAB PO PRN (00:55)
[2021-02-12] MEDS: SODIUM CHLORIDE 0.9% 1,000 ML IV SCH ×2 (02:00→12:26)
--- NOTE | 2021-02-12 02:32 | CT ---
EXAM: CT Angiography Chest With Intravenous Contrast CLINICAL HISTORY: ITS.REASON CT Reason: PE TECHNIQUE: Axial computed tomographic angiography images of the chest with intravenous contrast. CTDI is 16.67 mGy and DLP is 532.5 mGy-cm. This CT exam was performed using one or more of the following dose reduction techniques: automated exposure control, adjustment of the mA and/or kV according to patient size, and/or use of iterative reconstruction technique. MIP reconstructed images were created and reviewed. COMPARISON: No relevant prior studies available. FINDINGS: Pulmonary arteries: No evidence of pulmonary emboli. Aorta: No acute findings. No thoracic aortic aneurysm. Lungs: Severe bilateral pulmonary infiltration consistent with pneumonia. No mass. Pleural space: Unremarkable. No significant effusion. No pneumothorax. Heart: Unremarkable. No cardiomegaly. No significant pericardial effusion. No evidence of RV dysfunction. Bones/joints: No acute fracture. No dislocation. Soft tissues: Unremarkable. Lymph nodes: Unremarkable. No enlarged lymph nodes. IMPRESSION: 1. Severe bilateral pulmonary infiltration consistent with pneumonia. 2. No evidence of pulmonary emboli.
[2021-02-12] MEDS ORDERED: ACETAMINOPHEN TAB 325 MG TAB PO PRN (04:52)
--- NOTE | 2021-02-12 04:53 | P.HPIM ---
History of Present Illness H&P Date: 02/12/21 Patient is a 46-year-old male with no known PMH who presented to the emergency room with complaints of shortness of breath and decreased exercise tolerance. The patient reports that he was initially diagnosed with coronavirus 2 weeks ago and after a few days of fever, he subsequently felt well until about 34 days ago when symptoms gradually worsened again. He reports shortness of breath, signifi cantly reduced exercise tolerance, feeling short of breath with minimal exertion. He denied additional complaints. He denied chest discomfort, nausea, vomiting, fever, chills, cough, diarrhea, abdominal pain, dizziness. In the emergency room, chest CTA revealed severe bilateral pulmonary infiltrates with EKG showing sinus tachycardia at 131 bpm. Laboratory evaluation remarkable for leukocytosis of 13.2, platelets 715, lactic acid 2.4, glucose 237, LDH 1544, troponin less than 0.012, and CRP 4.0. Review of Systems Pertinent positives and negatives as discussed in HPI, a complete review of systems was performed and all other systems are negative. Past Medical History Past Medical History: No Reported History History of Any Multi-Drug Resistant Organisms: None Reported Additional Past Surgical History / Comment(s): SHOULDER SX Past Psychological History: No Psychological Hx Reported Smoking Status: Never smoker Past Alcohol Use History: None Reported Past Drug Use History: None Reported Medications and Allergies Home Medications Medication Instructions Recorded Confirmed Type Ascorbic Acid [Vitamin C] 1,000 mg PO DAILY 02/11/21 02/11/21 History Allergies Allergy/AdvReac Type Severity Reaction Status Date / Time No Known Allergies Allergy Verified 02/11/21 22:21 Physical Exam Vitals: Vital Signs Temp Pulse Resp BP Pulse Ox 02/12/21 04:00 77 22 118/80 98 02/12/21 03:46 84 22 116/82 97 02/12/21 01:49 93 24 130/84 96 02/12/21 01:00 97 24 136/80 98 02/12/21 00:00 90 24 124/84 98 02/11/21 23:00 100.4 F H 115 H 20 134/88 93 L 02/11/21 21:59 26 H 02/11/21 21:20 98.1 F 133 H 26 H 134/80 84 L Intake and Output 02/11/21 02/11/21 02/12/21 14:59 22:59 06:59 Other: Weight 95.254 kg General: non toxic, no distress, appears at stated age, overweight Derm: no unusual rashes/lesions no unusual ecchymoses, warm, dry Head: atraumatic, normocephalic, symmetric Eyes: EOMI, no lid lag, anicteric sclera, pupils equal round reactive to light ENT: Nose and ears atraumatic, no thrush, no pharyngeal erythema Neck: No thyromegaly, no cervical lymphadenopathy, trachea midline, supple Mouth: no lip lesion, mucus membranes moist Cardiovascular: S1S2 reg, no murmur, positive posterior tibial pulse bilateral, no edema, capillary refill less than 2 seconds Lungs: Bilateral rhonchi and rales, no wheezing appreciated, no accessory muscle use Abdominal: soft, nontender to palpation, no guarding, no appreciable organomegaly, normal bowel sounds Ext: no gross muscle atrophy, muscle strength 5 out of 5 in all 4 extremities g rossly, no contractures, Neuro: CN II-XI grossly intact, light touch intact all 4 extremities, finger to nose within normal limits, Psych: Alert, oriented, appropriate affect Results CBC & Chem 7: 02/11/21 22:40 02/11/21 22:40 Labs: Abnormal Lab Results - Last 24 Hours (Table) 02/11/21 02/11/21 02/11/21 Range/Units 22:40 22:40 22:40 WBC 13.2 H (3.8-10.6) k/uL MCHC 30.7 L (31.0-37.0) g/dL Plt Count 715 H (150-450) k/uL Neutrophils # 11.0 H (1.3-7.7) k/uL D-Dimer 2.01 H (<0.60) mg/L FEU Sodium 135 L (137-145) mmol/L Glucose 237 H (74-99) mg/dL Plasma Lactic Acid Jam (0.7-2.0) mmol/L Calcium 8.1 L (8.4-10.2) mg/dL AST 71 H (17-59) U/L ALT 115 H (4-49) U/L Alkaline Phosphatase 260 H (38-126) U/L Lactate Dehydrogenase 1544 H (313-618) U/L C-Reactive Protein 4.0 H (<1.0) mg/dL Albumin 3.3 L (3.5-5.0) g/dL 02/11/21 Range/Units 22:40 WBC (3.8-10.6) k/uL MCHC (31.0-37.0) g/dL Plt Count (150-450) k/uL Neutrophils # (1.3-7.7) k/uL D-Dimer (<0.60) mg/L FEU Sodium (137-145) mmol/L Glucose (74-99) mg/dL Plasma Lactic Acid Jam 2.4 H* (0.7-2.0) mmol/L Calcium (8.4-10.2) mg/dL AST (17-59) U/L ALT (4-49) U/L Alkaline Phosphatase (38-126) U/L Lactate Dehydrogenase (313-618) U/L C-Reactive Protein (<1.0) mg/dL Albumin (3.5-5.0) g/dL Assessment and Plan Plan: COVID-19 pneumonitis with acute hypoxic respiratory failure -Supplemental oxygen -Monitor inflammatory markers -Decadron -Check pro calcitonin -Vitamin C, zinc, vitamin D, melatonin Hyperglycemia -Check A1c Lactic acidosis -Monitor to resolution DVT prophylaxis -Lovenox The patient is admitted with an anticipated greater than 2 midnight stay for evaluation of COVID pneumonia CODE STATUS: Full Code Discussed with: Patient Anticipated discharge date: 2-[address]: Home A total of 35 minutes was spent on the care of this complex patient more than 50% of the time was spent in counseling and care coordination.
[2021-02-12 05:49] LABS: Glucose,Whole Blood 188 mg/dL (75-99)
[2021-02-12 07:55] LABS: Glucose,Whole Blood 162 mg/dL (75-99)
[2021-02-12] MEDS: INSULIN ASPART (NovoLOG) 100 UNIT/ML VIAL SQ SCH ×4 (08:03→21:02)
[2021-02-12] MEDS: dexAMETHasone 2 MG TAB PO SCH (08:24)
[2021-02-12] MEDS: ENOXAPARIN 40 MG/0.4 ML SYRINGE SQ SCH (08:24)
[2021-02-12] MEDS: ZINC SULFATE 220 MG CAP PO SCH (08:25)
[2021-02-12] MEDS: ASCORBIC ACID 500 MG TAB PO SCH (08:25)
[2021-02-12] MEDS: CHOLECALCIFEROL 25 MCG (1000 IU) TABLET PO SCH (08:25)
[2021-02-12] MEDS: ALBUTEROL HFA INHALER INHALATION SCH ×4 (09:45→20:12)
--- NOTE | 2021-02-12 09:49 | P.CNPUL ---
History of Present Illness Consult date: 02/12/21 Requesting physician: Serene Richmond Reason for consult: dyspnea, abnormal CXR/CT Chief complaint: Shortness of breath, cough, weakness History of present illness: This is a very pleasant 46-year-old male patient with no significant past medical history. No primary care physician. No home prescribed medications. Presently 14 days ago he developed fever, poor appetite fatigue. The last few days he has had increasing shortness of breath and presented here to the emergency room for the same. Chest x-ray reveals extensive pulmonary infiltrates consistent with RDS. CT angiogram ruled out pulmonary embolism. There is severe bilateral pulmonary infiltrate consistent with pneumonia. White count 13.2. Hemoglobin 14.2. Lymphocytes 10. D-dimer 2.01. Sodium 135. Potassium 4.2. Creatinine 0.71. Initial lactic 2.4. Currently 1.4. AST 71. ALT 1:15. LDH 1544. Troponins negative 2. C-reactive protein 4.0. Influenza screen negative. COVID-19 by PCR not detected. He is seen today in consultation in the emergency room. He is currently sitting up in the stretcher. Awake and alert. In mild respiratory distress. Initially 84% O2 saturations on room air. Currently on 100% nonrebreather mask. T-max 100.4. He's been initiated on dexamethasone, Lovenox, vitamin supplements, bronchodilators. 0.9 normal saline at 100 ML's per hour. Review of Systems REVIEW OF SYSTEMS: CONSTITUTIONAL: Generalized weakness, fatigue. Fever. Denies any recent si gnificant weight loss or weight gain. EYES: Denies change in vision. EARS, NOSE, MOUTH, THROAT: Denies headaches, denies sore throat. CARDIOVASCULAR: Denies chest pain, palpitations or syncopal episodes. RESPIRATORY: Positive for shortness of breath, cough, congestion no hemoptysis. GASTROINTESTINAL: Poor appetite, denies abdominal pain GENITOURINARY: Denies hematuria, denies infections. MUSKULOSKELETAL: Denies pain, denies swelling. INTEGUMENTARY: Denies rash, denies eczema. NEUROLOGICAL: Denies recent memory loss, no recent seizure activity. PSYCHIATRIC: Denies anxiety, denies depression. HEMATOLOGIC/LYMPHATIC: Denies anemia, denies enlarged lymph nodes. Past Medical History Past Medical History: No Reported History Additional Past Medical History / Comment(s): Nephrolithiasis-passed stones on his own. History of Any Multi-Drug Resistant Organisms: None Reported Past Surgical History: Orthopedic Surgery Additional Past Surgical History / Comment(s): L shoulder rotator cuff repair Past Anesthesia/Blood Transfusion Reactions: Postoperative Nausea & Vomiting (PONV) Smoking Status: Never smoker - Past Family History Father History Unknown: Yes Mother Family Medical History: No Reported History Additional Family Medical History / Comment(s): Mother is healthy Medications and Allergies Home Medications Medication Instructions Recorded Confirmed Type Ascorbic Acid [Vitamin C] 1,000 mg PO DAILY 02/11/21 02/11/21 History Allergies Allergy/AdvReac Type Severity Reaction Status Date / Time No Known Allergies Allergy Verified 02/11/21 22:21 Physical Exam Vitals: Vital Signs Temp Pulse Resp BP Pulse Ox 02/12/21 05:00 97.4 F L 69 22 97/57 94 L 02/12/21 04:00 77 22 118/80 98 02/12/21 03:46 84 22 116/82 97 02/12/21 01:49 93 24 130/84 96 02/12/21 01:00 97 24 136/80 98 02/12/21 00:00 90 24 124/84 98 02/11/21 23:00 100.4 F H 115 H 20 134/88 93 L 02/11/21 21:59 26 H 02/11/21 21:20 98.1 F 133 H 26 H 134/80 84 L Intake and Output 02/11/21 02/12/21 02/12/21 22:59 06:59 14:59 Other: Weight 95.254 kg 95.254 kg GENERAL EXAM: Alert, pleasant 46-year-old gentleman, currently in nonrebreather mask, fairly, comfortable in no apparent distress. HEAD: Normocephalic. EYES: Normal reaction of pupils, equal size. NOSE: Clear with pink turbinates. THROAT: No erythema or exudates. NECK: No masses, no JVD. CHEST: No chest wall deformity. LUNGS: Equal air entry with coarse crackles in the posterior bases. CVS: S1 and S2 normal with no audible murmur, regular rhythm. ABDOMEN: No hepatosplenomegaly, normal bowel sounds, no guarding or rigidity. SPINE: No scoliosis or deformity SKIN: No rashes CENTRAL NERVOUS SYSTEM: No focal deficits, tone is normal in all 4 extremities. EXTREMITIES: There is no peripheral edema. No clubbing, no cyanosis. Peripheral pulses are intact. Results - Laboratory Findings CBC and BMP: 02/11/21 22:40 02/11/21 22:40 PT/INR, D-dimer PT 10.3 sec (9.0-12.0) 02/11/21 22:40 INR 1.0 (<1.2) 02/11/21 22:40 D-Dimer 2.01 mg/L FEU (<0.60) H 02/11/21 22:40 Abnormal lab findings: Abnormal Labs 02/11/21 02/11/21 02/11/21 22:40 22:40 22:40 WBC 13.2 H MCHC 30.7 L Plt Count 715 H Neutrophils # 11.0 H D-Dimer 2.01 H Sodium 135 L Glucose 237 H POC Glucose (mg/dL) Plasma Lactic Acid Jam Calcium 8.1 L AST 71 H ALT 115 H Alkaline Phosphatase 260 H Lactate Dehydrogenase 1544 H C-Reactive Protein 4.0 H Albumin 3.3 L 02/11/21 02/12/21 02/12/21 22:40 05:44 07:53 WBC MCHC Plt Count Neutrophils # D-Dimer Sodium Glucose POC Glucose (mg/dL) 188 H 162 H Plasma Lactic Acid Jam 2.4 H* Calcium AST ALT Alkaline Phosphatase Lactate Dehydrogenase C-Reactive Protein Albumin - Diagnostic Findings Chest x-ray: image reviewed CT scan - chest: image reviewed Assessment and Plan Assessment: 1 Acute hypoxemic respiratory failure secondary to suspected COVID-19 pneumonia versus community-acquired pneumonia, Legionella 2 Elevated inflammatory markers secondary to above 3 Mild transaminitis secondary to above 4 Hyperglycemia Plan: The patient was seen and evaluated by Dr. Lazaro Chest x-ray, CAT scans and labs reviewed Suspect COVID-19 pneumonia We'll check antibodies for CoVID Legionella antigen Check pro calcitonin Continue Decadron, Lovenox, vitamin supplement Titrate the FiO2 as tolerated We will continue to follow and make further recommendations based on his clinical status I, the cosigning physician, performed a history & physical examination of the patient. Lungs sounds coarse crackles in the posterior bases. Maintaining good O2 saturations in the 90s on 100% nonrebreather mask. I discussed the assessment and plan of care with my nurse practitioner, Alexandra Farooq. I attest to the above consultation as dictated by her. Time with Patient: Greater than 30
[2021-02-12 10:00] LABS: HCT 44.4 % (39.6-50.0); HGB 13.6 g/dL (13.0-17.0); MCH 30.2 pg (27.0-32.0); MCHC 30.6 g/dL (32.0-37.0); MCV 98.4 fL (80.0-97.0); Mean Platelet Volume 9.6 fL (9.5-12.2); Platelet Count 587 X 10*3/uL (140-440); RBC 4.51 X 10*6/uL (4.40-5.60); RDW 14.2 % (11.5-14.5); WBC 10.45 X 10*3/uL (4.50-10.00)
[2021-02-12 11:18] LABS: Glucose,Whole Blood 251 mg/dL (75-99)
[2021-02-12 13:52] LABS: Hemoglobin A1C 6.6 % (4.0-6.0)
[2021-02-12] MEDS ORDERED: TOCILIZUMAB 800 MG in SODIUM CHLORIDE 0.9% 80 ML IV ONE (15:04)
[2021-02-12] MEDS ORDERED: TOCILIZUMAB 800 MG in SODIUM CHLORIDE 0.9% 60 ML IV ONE (15:28)
[2021-02-12 16:50] LABS: Glucose,Whole Blood 202 mg/dL (75-99)
[2021-02-12 20:37] LABS: Glucose,Whole Blood 247 mg/dL (75-99)
[2021-02-12] MEDS: MELATONIN 5 MG TABLET PO SCH (21:02)
[2021-02-13 06:59] LABS: Glucose,Whole Blood 125 mg/dL (75-99)
[2021-02-13] MEDS: INSULIN ASPART (NovoLOG) 100 UNIT/ML VIAL SQ SCH ×4 (07:34→20:27)
[2021-02-13] MEDS: ALBUTEROL HFA INHALER INHALATION SCH ×4 (08:09→20:07)
[2021-02-13] MEDS: ZINC SULFATE 220 MG CAP PO SCH (08:59)
[2021-02-13] MEDS: ASCORBIC ACID 500 MG TAB PO SCH (08:59)
[2021-02-13] MEDS: dexAMETHasone 2 MG TAB PO SCH (08:59)
[2021-02-13] MEDS: ENOXAPARIN 40 MG/0.4 ML SYRINGE SQ SCH (08:59)
[2021-02-13] MEDS: CHOLECALCIFEROL 25 MCG (1000 IU) TABLET PO SCH (08:59)
[2021-02-13 09:00] LABS: Basophils # (A) 0.1 k/uL (0-0.2); Basophils % (A) 1 %; Eosinophils % (A) 0 %; HCT 43.5 % (39.0-53.0); HGB 13.4 gm/dL (13.0-17.5); Hypochromasia Slight; Lymphocytes # (A) 1.8 k/uL (1.0-4.8); Lymphocytes % (A) 16 %; MCH 29.7 pg (25.0-35.0); MCHC 30.7 g/dL (31.0-37.0); MCV 96.8 fL (80.0-100.0); Monocytes # (A) 0.4 k/uL (0-1.0); Monocytes % (A) 4 %; Neutrophils # (A) 8.8 k/uL (1.3-7.7); Neutrophils % (A) 78 %; Platelet Count 638 k/uL (150-450); RDW 14.5 % (11.5-15.5); WBC 11.3 k/uL (3.8-10.6)
[2021-02-13 09:10] LABS: ALT 93 U/L (4-49); AST 93 U/L (17-59); African American GFR (CKD) >90 (>60 ml/min/1.73 sqM); Albumin 3.1 g/dL (3.5-5.0); Alkaline Phosphatase 173 U/L (38-126); Anion Gap 7 mmol/L; Blood Urea Nitrogen 15 mg/dL (9-20); C Reactive Protein 1.8 mg/dL (<1.0); Calcium 8.4 mg/dL (8.4-10.2); Carbon Dioxide 25 mmol/L (22-30); Chloride 109 mmol/L (98-107); Glucose 149 mg/dL (74-99); LDH 1208 U/L (313-618); Magnesium 2.2 mg/dL (1.6-2.3); Non-African American GFR(CKD) >90 (>60 ml/min/1.73 sqM); Potassium 4.5 mmol/L (3.5-5.1); Sodium 141 mmol/L (137-145); Total Bilirubin 0.6 mg/dL (0.2-1.3); Total Protein 6.4 g/dL (6.3-8.2)
[2021-02-13 10:16] VITALS: BMI 28.5
--- NOTE | 2021-02-13 10:53 | P.PN ---
Subjective Progress Note Date: 02/13/21 Patient was seen and evaluated by me today. He is complaining of severe shortness of breath with minimal exertion. He is currently on a nonrebreather. He denies any chest pain. No acute events overnight reported by nursing staff. Objective - Vital Signs Vital signs: Vital Signs Temp 97.4 F L 02/13/21 08:00 Pulse 89 02/13/21 08:00 Resp 18 02/13/21 08:00 BP 114/74 02/13/21 08:00 Pulse Ox 94 L 02/13/21 08:00 Intake & Output 02/12/21 02/13/21 02/13/21 18:59 06:59 18:59 Intake Total 480 1799 Output Total 300 600 Balance 180 1199 Weight 95.254 kg 95.254 kg Intake: Intake, IV Titration 1200 Amount Sodium Chloride 0.9% 1, 1200 000 ml @ 100 mls/hr IV . Q10H [facility] Rx#:[id number] Oral 480 400 Blood Product 199 Ffp Pher Conval Covid19 199 Acda 4 Unit [id number] Output: Urine 300 600 Other: Voiding Method Urinal Urinal # Voids 1 - Exam General: The patient is awake and alert, in no distress Eye: there is normal conjunctiva bilaterally. Neck: The neck is supple, there is no JVD. Cardiovascular: Normal S1-S2, no S3-S4, no murmurs. Respiratory: Lungs clear to auscultation bilaterally Gastrointestinal: Abdomen is soft, nontender Musculoskeletal: There is no pedal edema. Neurological:. Speech is normal. Skin: Skin is warm and dry - Labs CBC & Chem 7: 02/13/21 08:11 02/13/21 08:11 Labs: Abnormal Lab Results - Last 24 Hours (Table) 02/12/21 02/12/21 02/12/21 Range/Units 05:46 09:16 11:15 WBC (3.8-10.6) k/uL MCHC (31.0-37.0) g/dL Plt Count (150-450) k/uL Neutrophils # (1.3-7.7) k/uL D-Dimer (<0.60) mg/L FEU Chloride (98-107) mmol/L Creatinine (0.66-1.25) mg/dL Glucose (74-99) mg/dL POC Glucose (mg/dL) 251 H (75-99) mg/dL Hemoglobin A1c 6.6 H (4.0-6.0) % AST (17-59) U/L ALT (4-49) U/L Alkaline Phosphatase (38-126) U/L Lactate Dehydrogenase (313-618) U/L C-Reactive Protein (<1.0) mg/dL Albumin (3.5-5.0) g/dL Procalcitonin 0.29 H (0.02-0.09) ng/mL 02/12/21 02/12/21 02/13/21 Range/Units 16:45 20:35 06:57 WBC (3.8-10.6) k/uL MCHC (31.0-37.0) g/dL Plt Count (150-450) k/uL Neutrophils # (1.3-7.7) k/uL D-Dimer (<0.60) mg/L FEU Chloride (98-107) mmol/L Creatinine (0.66-1.25) mg/dL Glucose (74-99) mg/dL POC Glucose (mg/dL) 202 H 247 H 125 H (75-99) mg/dL Hemoglobin A1c (4.0-6.0) % AST (17-59) U/L ALT (4-49) U/L Alkaline Phosphatase (38-126) U/L Lactate Dehydrogenase (313-618) U/L C-Reactive Protein (<1.0) mg/dL Albumin (3.5-5.0) g/dL Procalcitonin (0.02-0.09) ng/mL 02/13/21 02/13/21 02/13/21 Range/Units 08:11 08:11 08:11 WBC 11.3 H (3.8-10.6) k/uL MCHC 30.7 L (31.0-37.0) g/dL Plt Count 638 H (150-450) k/uL Neutrophils # 8.8 H (1.3-7.7) k/uL D-Dimer 1.68 H (<0.60) mg/L FEU Chloride 109 H (98-107) mmol/L Creatinine 0.65 L (0.66-1.25) mg/dL Glucose 149 H (74-99) mg/dL POC Glucose (mg/dL) (75-99) mg/dL Hemoglobin A1c (4.0-6.0) % AST 93 H (17-59) U/L ALT 93 H (4-49) U/L Alkaline Phosphatase 173 H (38-126) U/L Lactate Dehydrogenase 1208 H (313-618) U/L C-Reactive Protein 1.8 H (<1.0) mg/dL Albumin 3.1 L (3.5-5.0) g/dL Procalcitonin (0.02-0.09) ng/mL Microbiology - Last 24 Hours (Table) 02/11/21 23:10 Blood Culture - Preliminary Blood No Growth after 24 hours 02/11/21 22:55 Blood Culture - Preliminary Blood No Growth after 24 hours Assessment and Plan Assessment: This is a 46-year-old male with no significant past medical history that presented to the emergency room with worsening fatigue, fever, and shortness of breath. Patient was evaluated in the ER and admitted to the hospital for further management of his medical problems noted below. 1. COVID-19 pneumonia, seen and evaluated by pulmonology. Treated with Tocilizumab. Continue vitamin C, vitamin D, zinc, and melatonin. Started on Decadron 6 mg daily day #2. Albuterol inhaler every 6 hours. 2. Acute hypoxic respiratory failure currently on nonrebreather. Imaging showed bilateral lung infiltrate. CT angiogram negative for PE 3. Steroid-induced hyperglycemia, no history of diabetes. Continue sliding scale insulin. 4. DVT prophylaxis with subcu Lovenox Today, I reviewed his medication list and lab work results. Continue current regimen. We will monitor inflammatory markers. Appreciate [employer] sales consultant's recommendations.
--- NOTE | 2021-02-13 11:26 | P.PN ---
Subjective Progress Note Date: 02/13/21 Principal diagnosis: COVID-19 pneumonia This is a very pleasant 46-year-old male patient with no significant past medical history. No primary care physician. No home prescribed medications. Presently 14 days ago he developed fever, poor appetite fatigue. The last few days he has had increasing shortness of breath and presented here to the emergency room for the same. Chest x-ray reveals extensive pulmonary infiltrates consistent with RDS. CT angiogram ruled out pulmonary embolism. There is severe bilateral pulmonary infiltrate consistent with pneumonia. White count 13.2. Hemoglobin 14.2. Lymphocytes 10. D-dimer 2.01. Sodium 135. Potassium 4.2. Creatinine 0.71. Initial lactic 2.4. Currently 1.4. AST 71. ALT 1:15. LDH 1544. Troponins negative 2. C-reactive protein 4.0. Influenza screen negative. COVID-19 by PCR not detected. He is seen today in consultation in the emergency room. He is currently sitting up in the stretcher. Awake and alert. In mild respiratory distress. Initially 84% O2 saturations on room air. Currently on 100% nonrebreather mask. T-max 100.4. He's been initiated on dexamethasone, Lovenox, vitamin supplements, bro nchodilators. 0.9 normal saline at 100 ML's per hour. The patient is seen today 02/13/2021 in follow-up in the observation unit. He is currently sitting up in bed. Awake and alert in no acute distress. He is quite dyspneic with minimal conversation, minimal activity. He remains on a nonrebreather mask per his request. He did have some pain from his nose from the nasal cannula. He was outside the window for Remdesivir. His COVID-19 screening follow-up was positive. He received Tocilizumab. Convalescent plasma 1. Remains on Lovenox, dexamethasone, vitamin supplements. 0.9 normal saline at 75 ML's per hour. White count 11.3. Hemoglobin 13.4. D-dimer 1.68. Sodium 141. Potassium 4.5. Creatinine 0.65. AST 93. ALT 93. LDH 1208. C-reactive protein 1.8. Objective - Vital Signs Vital signs: Vital Signs Temp 97.4 F L 02/13/21 08:00 Pulse 89 02/13/21 08:00 Resp 18 02/13/21 08:00 BP 114/74 02/13/21 08:00 Pulse Ox 94 L 02/13/21 08:00 Intake & Output 02/12/21 02/13/21 02/13/21 18:59 06:59 18:59 Intake Total 480 1799 Output Total 300 600 Balance 180 1199 Weight 95.254 kg 95.254 kg Intake: Intake, IV Titration 1200 Amount Sodium Chloride 0.9% 1, 1200 000 ml @ 100 mls/hr IV . Q10H [facility] Rx#:[id number] Oral 480 400 Blood Product 199 Ffp Pher Conval Covid19 199 Acda 4 Unit [id number] Output: Urine 300 600 Other: Voiding Method Urinal Urinal # Voids 1 - Exam GENERAL EXAM: Alert, 46-year-old gentleman, nonrebreather mask, fairly, comfortable in no apparent distress. HEAD: Normocephalic. EYES: Normal reaction of pupils, equal size. NOSE: Clear with pink turbinates. THROAT: No erythema or exudates. NECK: No masses, no JVD. CHEST: No chest wall deformity. LUNGS: Equal air entry with crackles in the bilateral posterior bases. CVS: S1 and S2 normal with no audible murmur, regular rhythm. ABDOMEN: No hepatosplenomegaly, normal bowel sounds, no guarding or rigidity. SPINE: No scoliosis or deformity SKIN: No rashes CENTRAL NERVOUS SYSTEM: No focal deficits, tone is normal in all 4 extremities. EXTREMITIES: There is no peripheral edema. No clubbing, no cyanosis. Peripheral pulses are intact. - Labs CBC & Chem 7: 02/13/21 08:11 02/13/21 08:11 Labs: Abnormal Lab Results - Last 24 Hours (Table) 02/12/21 02/12/21 02/12/21 Range/Units 05:46 09:16 16:45 WBC (3.8-10.6) k/uL MCHC (31.0-37.0) g/dL Plt Count (150-450) k/uL Neutrophils # (1.3-7.7) k/uL D-Dimer (<0.60) mg/L FEU Chloride (98-107) mmol/L Creatinine (0.66-1.25) mg/dL Glucose (74-99) mg/dL POC Glucose (mg/dL) 202 H (75-99) mg/dL Hemoglobin A1c 6.6 H (4.0-6.0) % AST (17-59) U/L ALT (4-49) U/L Alkaline Phosphatase (38-126) U/L Lactate Dehydrogenase (313-618) U/L C-Reactive Protein (<1.0) mg/dL Albumin (3.5-5.0) g/dL Procalcitonin 0.29 H (0.02-0.09) ng/mL 02/12/21 02/13/21 02/13/21 Range/Units 20:35 06:57 08:11 WBC (3.8-10.6) k/uL MCHC (31.0-37.0) g/dL Plt Count (150-450) k/uL Neutrophils # (1.3-7.7) k/uL D-Dimer 1.68 H (<0.60) mg/L FEU Chloride (98-107) mmol/L Creatinine (0.66-1.25) mg/dL Glucose (74-99) mg/dL POC Glucose (mg/dL) 247 H 125 H (75-99) mg/dL Hemoglobin A1c (4.0-6.0) % AST (17-59) U/L ALT (4-49) U/L Alkaline Phosphatase (38-126) U/L Lactate Dehydrogenase (313-618) U/L C-Reactive Protein (<1.0) mg/dL Albumin (3.5-5.0) g/dL Procalcitonin (0.02-0.09) ng/mL 02/13/21 02/13/21 Range/Units 08:11 08:11 WBC 11.3 H (3.8-10.6) k/uL MCHC 30.7 L (31.0-37.0) g/dL Plt Count 638 H (150-450) k/uL Neutrophils # 8.8 H (1.3-7.7) k/uL D-Dimer (<0.60) mg/L FEU Chloride 109 H (98-107) mmol/L Creatinine 0.65 L (0.66-1.25) mg/dL Glucose 149 H (74-99) mg/dL POC Glucose (mg/dL) (75-99) mg/dL Hemoglobin A1c (4.0-6.0) % AST 93 H (17-59) U/L ALT 93 H (4-49) U/L Alkaline Phosphatase 173 H (38-126) U/L Lactate Dehydrogenase 1208 H (313-618) U/L C-Reactive Protein 1.8 H (<1.0) mg/dL Albumin 3.1 L (3.5-5.0) g/dL Procalcitonin (0.02-0.09) ng/mL Microbiology - Last 24 Hours (Table) 02/11/21 23:10 Blood Culture - Preliminary Blood No Growth after 24 hours 02/11/21 22:55 Blood Culture - Preliminary Blood No Growth after 24 hours Assessment and Plan Assessment: 1 Acute hypoxemic respiratory failure secondary to COVID-19 pneumonia. Outside the window for Remdesivir. Received Tocilizumab. Received convalescent plasma 2 Elevated inflammatory markers secondary to above 3 Mild transaminitis secondary to above 4 Hyperglycemia Plan: The patient was seen and evaluated by Dr. Lazaro Received tocilizumab, convalescent plasma Continue Decadron, Lovenox, vitamin supplement Titrate the FiO2 as tolerated Follow-up chest x-ray and labs in the a.m. We will continue to follow and make further recommendations based on his clinical status I, the cosigning physician, performed a history & physical examination of the patient. Lungs sounds coarse crackles in the posterior bases. Maintaining good O2 saturations in the 90s on 100% nonrebreather mask. I discussed the assessment and plan of care with my nurse practitioner, Alexandra Farooq. I attest to the above note as dictated by her.
[2021-02-13 11:30] LABS: Glucose,Whole Blood 127 mg/dL (75-99)
[2021-02-13 16:20] LABS: Glucose,Whole Blood 149 mg/dL (75-99)
[2021-02-13 19:12] LABS: Glucose,Whole Blood 195 mg/dL (75-99)
[2021-02-13] MEDS: MELATONIN 5 MG TABLET PO SCH (20:27)
[2021-02-14 07:14] LABS: Glucose,Whole Blood 103 mg/dL (75-99)
[2021-02-14] MEDS: INSULIN ASPART (NovoLOG) 100 UNIT/ML VIAL SQ SCH ×4 (07:32→20:57)
[2021-02-14] MEDS: ENOXAPARIN 40 MG/0.4 ML SYRINGE SQ SCH (07:50)
[2021-02-14] MEDS: dexAMETHasone 2 MG TAB PO SCH (07:50)
[2021-02-14] MEDS: ASCORBIC ACID 500 MG TAB PO SCH (07:50)
[2021-02-14] MEDS: CHOLECALCIFEROL 25 MCG (1000 IU) TABLET PO SCH (07:50)
[2021-02-14] MEDS: ZINC SULFATE 220 MG CAP PO SCH (07:50)
[2021-02-14] MEDS: ALBUTEROL HFA INHALER INHALATION SCH ×4 (07:58→19:17)
[2021-02-14] MEDS ORDERED: SODIUM CHLORIDE 0.65% NASAL SPRAY 44 ML BTL NASAL PRN (09:44)
--- NOTE | 2021-02-14 09:46 | P.PN ---
Subjective Progress Note Date: 02/14/21 Patient was seen and evaluated today. He was maintained on 100% nonrebreather. Apparently patient is uncomfortable with the nasal cannula and is complaining of dry nose and that's the reason why he is on the nonrebreather mask. O2 sat checked this morning he was a 95%. I discussed with the respiratory therapy to wean off oxygen as tolerated for O2 sat greater than 90%. I explained that to the patient and offered him to use [place] as needed for dry nose. In addition his oxygen would be mos most arrived Objective - Vital Signs Vital signs: Vital Signs Temp 97.8 F 02/14/21 08:00 Pulse 98 02/14/21 08:00 Resp 18 02/14/21 08:00 BP 134/82 02/14/21 08:00 Pulse Ox 92 L 02/14/21 08:00 Intake & Output 02/13/21 02/14/21 02/14/21 18:59 06:59 18:59 Weight 95.254 kg Other: Voiding Method Urinal Urinal # Voids 2 - Exam General: The patient is awake and alert, in no distress Eye: there is normal conjunctiva bilaterally. Neck: The neck is supple, there is no JVD. Cardiovascular: Normal S1-S2, no S3-S4, no murmurs. Respiratory: Lungs clear to auscultation bilaterally Gastrointestinal: Abdomen is soft, nontender Musculoskeletal: There is no pedal edema. Neurological:. Speech is normal. Skin: Skin is warm and dry - Labs CBC & Chem 7: 02/13/21 08:11 02/13/21 08:11 Labs: Abnormal Lab Results - Last 24 Hours (Table) 02/13/21 02/13/21 02/13/21 Range/Units 11:26 16:18 19:11 POC Glucose (mg/dL) 127 H 149 H 195 H (75-99) mg/dL 02/14/21 Range/Units 07:07 POC Glucose (mg/dL) 103 H (75-99) mg/dL Microbiology - Last 24 Hours (Table) 02/11/21 23:10 Blood Culture - Preliminary Blood No Growth after 48 hours 02/11/21 22:55 Blood Culture - Preliminary Blood No Growth after 48 hours Assessment and Plan Assessment: This is a 46-year-old male with no significant past medical history that presented to the emergency room with worsening fatigue, fever, and shortness of breath. Patient was evaluated in the ER and admitted to the hospital for further management of his medical problems noted below. 1. COVID-19 pneumonia, seen and evaluated by pulmonology. Treated with Tocilizumab. Continue vitamin C, vitamin D, zinc, and melatonin. Started on Decadron 6 mg daily day #3. Albuterol inhaler every 6 hours. 2. Acute hypoxic respiratory failure currently on nonrebreather. Imaging showed bilateral lung infiltrate worse on the left wean off O2 as tolerated for O2 sats greater than 90%. CT angiogram negative for PE 3. Steroid-induced hyperglycemia, no history of diabetes. Continue sliding scale insulin. 4. DVT prophylaxis with subcu Lovenox Today, I reviewed his medication list and lab work results. Continue current regimen. We will monitor inflammatory markers. Appreciate lactation consultant's recomme ndations.
--- NOTE | 2021-02-14 09:59 | P.PN ---
Subjective Progress Note Date: 02/14/21 Principal diagnosis: COVID-19 pneumonia This is a very pleasant 46-year-old male patient with no significant past medical history. No primary care physician. No home prescribed medications. Presently 14 days ago he developed fever, poor appetite fatigue. The last few days he has had increasing shortness of breath and presented here to the emergency room for the same. Chest x-ray reveals extensive pulmonary infiltrates consistent with RDS. CT angiogram ruled out pulmonary embolism. There is severe bilateral pulmonary infiltrate consistent with pneumonia. White count 13.2. Hemoglobin 14.2. Lymphocytes 10. D-dimer 2.01. Sodium 135. Potassium 4.2. Creatinine 0.71. Initial lactic 2.4. Currently 1.4. AST 71. ALT 1:15. LDH 1544. Troponins negative 2. C-reactive protein 4.0. Influenza screen negative. COVID-19 by PCR not detected. He is seen today in consultation in the emergency room. He is currently sitting up in the stretcher. Awake and alert. In mild respiratory distress. Initially 84% O2 saturations on room air. Currently on 100% nonrebreather mask. T-max 100.4. He's been initiated on dexamethasone, Lovenox, vitamin supplements, bro nchodilators. 0.9 normal saline at 100 ML's per hour. The patient is seen today 02/13/2021 in follow-up in the observation unit. He is currently sitting up in bed. Awake and alert in no acute distress. He is quite dyspneic with minimal conversation, minimal activity. He remains on a nonrebreather mask per his request. He did have some pain from his nose from the nasal cannula. He was outside the window for Remdesivir. His COVID-19 screening follow-up was positive. He received Tocilizumab. Convalescent plasma 1. Remains on Lovenox, dexamethasone, vitamin supplements. 0.9 normal saline at 75 ML's per hour. White count 11.3. Hemoglobin 13.4. D-dimer 1.68. Sodium 141. Potassium 4.5. Creatinine 0.65. AST 93. ALT 93. LDH 1208. C-reactive protein 1.8. The patient is seen today 02/14/2021 follow-up on the observation unit. Currently sitting up in bed. Awake and alert in no acute distress. Breathing a bit easier today compared to yesterday. Still requiring nonrebreather mask. On room air he is 83%. No IV fluids. He did receive Tocilizumab, 1 unit convalescent plasma. Blood cultures reveal no growth. Blood glucose 103. Continued on Lovenox, dexamethasone, vitamin supplements. Chest x-ray continues to show bilateral airspace disease more so on the left lung and right upper lobes. Objective - Vital Signs Vital signs: Vital Signs Temp 97.8 F 02/14/21 08:00 Pulse 98 02/14/21 08:00 Resp 18 02/14/21 08:00 BP 134/82 02/14/21 08:00 Pulse Ox 92 L 02/14/21 08:00 Intake & Output 02/13/21 02/14/21 02/14/21 18:59 06:59 18:59 Weight 95.254 kg Other: Voiding Method Urinal Urinal # Voids 2 - Exam GENERAL EXAM: Alert, 46-year-old gentleman, nonrebreather mask, fairly comfortable in no apparent distress. HEAD: Normocephalic. EYES: Normal reaction of pupils, equal size. NOSE: Clear with pink turbinates. THROAT: No erythema or exudates. NECK: No masses, no JVD. CHEST: No chest wall deformity. LUNGS: Equal air entry with crackles in the bilateral posterior bases. CVS: S1 and S2 normal with no audible murmur, regular rhythm. ABDOMEN: No hepatosplenomegaly, normal bowel sounds, no guarding or rigidity. SPINE: No scoliosis or deformity SKIN: No rashes CENTRAL NERVOUS SYSTEM: No focal deficits, tone is normal in all 4 extremities. EXTREMITIES: There is no peripheral edema. No clubbing, no cyanosis. Periph eral pulses are intact. - Labs CBC & Chem 7: 02/13/21 08:11 02/13/21 08:11 Labs: Abnormal Lab Results - Last 24 Hours (Table) 02/13/21 02/13/21 02/13/21 Range/Units 11:26 16:18 19:11 POC Glucose (mg/dL) 127 H 149 H 195 H (75-99) mg/dL 02/14/21 Range/Units 07:07 POC Glucose (mg/dL) 103 H (75-99) mg/dL Microbiology - Last 24 Hours (Table) 02/11/21 23:10 Blood Culture - Preliminary Blood No Growth after 48 hours 02/11/21 22:55 Blood Culture - Preliminary Blood No Growth after 48 hours Assessment and Plan Assessment: 1 Acute hypoxemic respiratory failure secondary to COVID-19 pneumonia. Outside the window for Remdesivir. Received Tocilizumab. Received convalescent plasma 2 Elevated inflammatory markers secondary to above 3 Mild transaminitis secondary to above 4 Hyperglycemia Plan: The patient was seen and evaluated by Dr. Lazaro Chest x-ray reviewed, labs pending Continue Decadron, Lovenox, vitamin supplement Titrate the FiO2 as tolerated May be better with AirVo oxygen versus nonrebreather We will continue to follow and make further recommendations based on his clinical status I, the cosigning physician, performed a history & physical examination of the patient. Lungs sounds coarse crackles in the posterior bases. Maintaining good O2 saturations in the 90s on 100% nonrebreather mask. I discussed the assessment and plan of care with my nurse practitioner, Alexandra Farooq. I attest to the above note as dictated by her.
--- NOTE | 2021-02-14 10:33 | XR ---
EXAMINATION TYPE: XR chest 1V portable DATE OF EXAM: 02/14/2021 COMPARISON: Chest x-ray 02/11/2021 HISTORY: Shortness of breath, Covid positive, pneumonia TECHNIQUE: Single frontal view of the chest is obtained. FINDINGS: There is no significant change. The appearance of an enlarged heart may be accentuated by rotation. Bilateral airspace disease is persistent. Lung volumes are low. IMPRESSION: Findings consistent with Covid pneumonia.
[2021-02-14 11:34] LABS: C Reactive Protein 1.2 mg/dL (<1.0)
[2021-02-14 11:36] LABS: Glucose,Whole Blood 123 mg/dL (75-99)
[2021-02-14 17:22] LABS: Glucose,Whole Blood 163 mg/dL (75-99)
[2021-02-14 20:51] LABS: Glucose,Whole Blood 136 mg/dL (75-99)
[2021-02-14] MEDS: MELATONIN 5 MG TABLET PO SCH (20:57)
[2021-02-14] MEDS: ACETAMINOPHEN TAB 325 MG TAB PO PRN (21:02)
[2021-02-15 07:38] LABS: Glucose,Whole Blood 101 mg/dL (75-99)
[2021-02-15] MEDS: INSULIN ASPART (NovoLOG) 100 UNIT/ML VIAL SQ SCH ×4 (07:54→22:21)
[2021-02-15] MEDS: ALBUTEROL HFA INHALER INHALATION SCH ×4 (08:15→20:09)
[2021-02-15] MEDS: ASCORBIC ACID 500 MG TAB PO SCH (08:58)
[2021-02-15] MEDS: dexAMETHasone 2 MG TAB PO SCH (08:59)
[2021-02-15] MEDS: CHOLECALCIFEROL 25 MCG (1000 IU) TABLET PO SCH (08:59)
[2021-02-15] MEDS: ENOXAPARIN 40 MG/0.4 ML SYRINGE SQ SCH (08:59)
[2021-02-15] MEDS: ZINC SULFATE 220 MG CAP PO SCH (08:59)
[2021-02-15 09:11] LABS: Basophils # (A) 0.05 X 10*3/uL (0.00-0.10); Basophils % (A) 0.5 %; Eosinophils # (A) 0.04 X 10*3/uL (0.04-0.35); Eosinophils % (A) 0.4 %; HCT 48.5 % (39.6-50.0); HGB 14.3 g/dL (13.0-17.0); Lymphocytes # (A) 2.34 X 10*3/uL (0.90-5.00); Lymphocytes % (A) 21.6 %; MCH 29.3 pg (27.0-32.0); MCHC 29.5 g/dL (32.0-37.0); MCV 99.4 fL (80.0-97.0); Mean Platelet Volume 9.3 fL (9.5-12.2); Monocytes # (A) 0.73 X 10*3/uL (0.20-1.00); Monocytes % (A) 6.8 %; Neutrophils # (A) 7.57 X 10*3/uL (1.80-7.70); Platelet Count 612 X 10*3/uL (140-440); RBC 4.88 X 10*6/uL (4.40-5.60); RDW 14.4 % (11.5-14.5); WBC 10.81 X 10*3/uL (4.50-10.00)
[2021-02-15 10:11] LABS: Anion Gap 9.4 mmol/L (4.00-12.00); BUN/Creat Ratio 32.5 Ratio (12.00-20.00); Calcium 8.8 mg/dL (8.7-10.3); Carbon Dioxide 26.6 mmol/L (21.6-31.8); Non-African American GFR(CKD) 107.9 (60.0-200.0)
[2021-02-15 11:56] LABS: Glucose,Whole Blood 184 mg/dL (75-99)
--- NOTE | 2021-02-15 14:22 | P.PN ---
Subjective Progress Note Date: 02/15/21 Principal diagnosis: COVID-19 pneumonia This is a very pleasant 46-year-old male patient with no significant past medical history. No primary care physician. No home prescribed medications. Presently 14 days ago he developed fever, poor appetite fatigue. The last few days he has had increasing shortness of breath and presented here to the emergency room for the same. Chest x-ray reveals extensive pulmonary infiltrates consistent with RDS. CT angiogram ruled out pulmonary embolism. There is severe bilateral pulmonary infiltrate consistent with pneumonia. White count 13.2. Hemoglobin 14.2. Lymphocytes 10. D-dimer 2.01. Sodium 135. Potassium 4.2. Creatinine 0.71. Initial lactic 2.4. Currently 1.4. AST 71. ALT 1:15. LDH 1544. Troponins negative 2. C-reactive protein 4.0. Influenza screen negative. COVID-19 by PCR not detected. He is seen today in consultation in the emergency room. He is currently sitting up in the stretcher. Awake and alert. In mild respiratory distress. Initially 84% O2 saturations on room air. Currently on 100% nonrebreather mask. T-max 100.4. He's been initiated on dexamethasone, Lovenox, vitamin supplements, bro nchodilators. 0.9 normal saline at 100 ML's per hour. The patient is seen today 02/13/2021 in follow-up in the observation unit. He is currently sitting up in bed. Awake and alert in no acute distress. He is quite dyspneic with minimal conversation, minimal activity. He remains on a nonrebreather mask per his request. He did have some pain from his nose from the nasal cannula. He was outside the window for Remdesivir. His COVID-19 screening follow-up was positive. He received Tocilizumab. Convalescent plasma 1. Remains on Lovenox, dexamethasone, vitamin supplements. 0.9 normal saline at 75 ML's per hour. White count 11.3. Hemoglobin 13.4. D-dimer 1.68. Sodium 141. Potassium 4.5. Creatinine 0.65. AST 93. ALT 93. LDH 1208. C-reactive protein 1.8. The patient is seen today 02/14/2021 follow-up on the observation unit. Currently sitting up in bed. Awake and alert in no acute distress. Breathing a bit easier today compared to yesterday. Still requiring nonrebreather mask. On room air he is 83%. No IV fluids. He did receive Tocilizumab, 1 unit convalescent plasma. Blood cultures reveal no growth. Blood glucose 103. Continued on Lovenox, dexamethasone, vitamin supplements. Chest x-ray continues to show bilateral airspace disease more so on the left lung and right upper lobes. The patient is seen today 02/15/2021 follow-up on the regular medical floor. He is currently resting comfortably in bed. Awake and alert in no acute distress. He is still on the 100% nonrebreather mask maintaining O2 saturations in the mid 90s. He's been afebrile. He did receive Tocilizumab, 1 unit convalescent plasma. Blood cultures reveal no growth. White count 10.8. Hemoglobin 14.3. Sodium 141. Potassium 5.0. Creatinine 0.8. Continued on dexamethasone, Lo venox, vitamin supplements. Objective - Vital Signs Vital signs: Vital Signs Temp 97.8 F 02/15/21 07:30 Pulse 87 02/15/21 07:30 Resp 16 02/15/21 07:30 BP 126/85 02/15/21 07:30 Pulse Ox 96 02/15/21 07:30 Intake & Output 02/14/21 02/15/21 02/15/21 18:59 06:59 18:59 Intake Total 100 400 Output Total 750 Balance 100 -350 Intake: Oral 100 400 Output: Urine 750 Other: Voiding Method Urinal Urinal Urinal # Voids 3 - Exam GENERAL EXAM: Alert, 46-year-old gentleman, 100% nonrebreather mask, fairly comfortable in no apparent distress. HEAD: Normocephalic. EYES: Normal reaction of pupils, equal size. NOSE: Clear with pink turbinates. THROAT: No erythema or exudates. NECK: No masses, no JVD. CHEST: No chest wall deformity. LUNGS: Equal air entry with crackles in the bilateral posterior bases. CVS: S1 and S2 normal with no audible murmur, regular rhythm. ABDOMEN: No hepatosplenomegaly, normal bowel sounds, no guarding or rigidity. SPINE: No scoliosis or deformity SKIN: No rashes CENTRAL NERVOUS SYSTEM: No focal deficits, tone is normal in all 4 extremities. EXTREMITIES: There is no peripheral edema. No clubbing, no cyanosis. Peripheral pulses are intact. - Labs CBC & Chem 7: 02/15/21 05:42 02/15/21 05:42 Labs: Abnormal Lab Results - Last 24 Hours (Table) 02/14/21 02/14/21 02/15/21 Range/Units 17:20 20:46 05:42 WBC 10.81 H (4.50-10.00) X 10*3/uL MCV 99.4 H (80.0-97.0) fL MCHC 29.5 L (32.0-37.0) g/dL Plt Count 612 H (140-440) X 10*3/uL MPV 9.3 L (9.5-12.2) fL Immature Gran # 0.08 H (0.00-0.04) X 10*3/uL BUN/Creatinine Ratio (12.00-20.00) Ratio POC Glucose (mg/dL) 163 H 136 H (75-99) mg/dL 02/15/21 02/15/21 02/15/21 Range/Units 05:42 07:36 11:52 WBC (4.50-10.00) X 10*3/uL MCV (80.0-97.0) fL MCHC (32.0-37.0) g/dL Plt Count (140-440) X 10*3/uL MPV (9.5-12.2) fL Immature Gran # (0.00-0.04) X 10*3/uL BUN/Creatinine Ratio 32.50 H (12.00-20.00) Ratio POC Glucose (mg/dL) 101 H 184 H (75-99) mg/dL Microbiology - Last 24 Hours (Table) 02/11/21 23:10 Blood Culture - Preliminary Blood No Growth after 72 hours 02/11/21 22:55 Blood Culture - Preliminary Blood No Growth after 72 hours Assessment and Plan Assessment: 1 Acute hypoxemic respiratory failure secondary to COVID-19 pneumonia. Outside the window for Remdesivir. Received Tocilizumab. Received convalescent plasma 2 Elevated inflammatory markers secondary to above 3 Mild transaminitis secondary to above 4 Hyperglycemia Plan: The patient was seen and evaluated by Dr. Lazaro Continue Decadron, Lovenox, vitamin supplement Convert from nonrebreather mask to high flow nasal cannula Titrate the FiO2 as tolerated Repeat chest x ray, inflammatory markers in the a.m. We will continue to follow and make further recommendations based on his clinical status I, the cosigning physician, performed a history & physical examination of the patient. Lungs sounds coarse crackles in the posterior bases. Maintaining good O2 saturations in the 90s on 100% nonrebreather mask. I discussed the assessment and plan of care with my nurse practitioner, Alexandra Farooq. I attest to the above note as dictated by her.
[2021-02-15 17:11] LABS: Glucose,Whole Blood 161 mg/dL (75-99)
--- NOTE | 2021-02-15 18:02 | P.PN ---
Subjective Progress Note Date: 02/15/21 (delayed charting seen at 0930) Principal diagnosis: shortness of breath Patient is a 46-year-old male with no significant past medical history who presented secondary to shortness of breath and decreased exercise tolerance. In the ER he underwent extensive evaluation. His initial vital signs showed hypoxia of 84% on room air, pulse 133, respiratory rate of 26. Labs showed white blood cell count of 13.2, platelets 715, d-dimer 2.01, sodium 135, glucose 237, lactic acid 2.4, LDH 1544, pro calcitonin 0.29. Initially his COVID testing was negative. He was negative for influenza, Legionella, and RSV. A chest x-ray be revealed extensive bilateral pulmonary infiltrates. CT angio of the chest was negative for any pulmonary embolism. He was seen by pulm and Leg ionela antigen was negative. Repeat COVID testing was positiv. He was started on decadron, Vit C/D/Zinc. He was given a dose of Toci and convolescent plasma. Patient seen and exaomed at bedside. He still is felling tired and short of breath. No NARAYANAN, eating and drinking well, no nausea, no vomiting, no diarrhea.We had a discussion that he will llikely need to be discharged on home O2 and he is aware, and that it will likly be a prolonged recovery. 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 General: Ill appearing, no distress, appears at stated age Derm: warm, dry Head: atraumatic, normocephalic, symmetric Eyes: EOMI, no lid lag, anicteric sclera Mouth: no lip lesion, mucus membranes moist Cardiovascular: S1S2 reg, no murmur, positive posterior tibial pulse bilateral, Lungs: Rhonchi bilateral, 3 word conversational dyspnea , + accessory muscle use Abdominal: soft, nontender to palpation, no guarding, no appreciable organomegaly Ext: no gross muscle atrophy, no edema, no contractures Neuro: CN II-XI grossly intact, no focal neuro deficits Psych: Alert, oriented, appropriate affect COVID 19 pneumonitis, Acute hypoxic respiratory failure - Decadron D # 4 - wean O2 as able patient aware that he needs to requiring less then 5L NC to be discharged - zinc/vit c/vit D - Lovenox - S/P Toci, COnvolescent plasma X1 Newly discovered prediabetes - A1C 6.6 but cannot confirm DM as no fasting glucose about 126 despite being on steroids - metformin on discharge - outpatient follow-up Transaminitis, fatty infiltration of liver (CT 04/23/20) - likely due to COVID - Follow-up outpatient Thrombocytosis - suspect reactive - follow CBC DVT prophylaxis: SCDs Discussed with: Patient, nursing Anticipated discharge: 1-[address]: home A total of 35 minutes was spent on the care of this complex patient more than 50% of the time was spent in counseling and care coordination. Objective - Vital Signs Vital signs: Vital Signs Temp 97.7 F 02/15/21 13:50 Pulse 101 H 02/15/21 13:50 Resp 16 02/15/21 13:50 BP 117/79 02/15/21 13:50 Pulse Ox 95 02/15/21 13:50 Intake & Output 02/14/21 02/15/21 02/15/21 18:59 06:59 18:59 Intake Total 100 400 Output Total 750 Balance 100 -350 Intake: Oral 100 400 Output: Urine 750 Other: Voiding Method Urinal Urinal Urinal # Voids 3 - Labs CBC & Chem 7: 02/15/21 05:42 02/15/21 05:42 Labs: Abnormal Lab Results - Last 24 Hours (Table) 02/14/21 02/15/21 02/15/21 Range/Units 20:46 05:42 05:42 WBC 10.81 H (4.50-10.00) X 10*3/uL MCV 99.4 H (80.0-97.0) fL MCHC 29.5 L (32.0-37.0) g/dL Plt Count 612 H (140-440) X 10*3/uL MPV 9.3 L (9.5-12.2) fL Immature Gran # 0.08 H (0.00-0.04) X 10*3/uL BUN/Creatinine Ratio 32.50 H (12.00-20.00) Ratio POC Glucose (mg/dL) 136 H (75-99) mg/dL 02/15/21 02/15/21 02/15/21 Range/Units 07:36 11:52 17:10 WBC (4.50-10.00) X 10*3/uL MCV (80.0-97.0) fL MCHC (32.0-37.0) g/dL Plt Count (140-440) X 10*3/uL MPV (9.5-12.2) fL Immature Gran # (0.00-0.04) X 10*3/uL BUN/Creatinine Ratio (12.00-20.00) Ratio POC Glucose (mg/dL) 101 H 184 H 161 H (75-99) mg/dL Microbiology - Last 24 Hours (Table) 02/11/21 23:10 Blood Culture - Preliminary Blood No Growth after 72 hours 02/11/21 22:55 Blood Culture - Preliminary Blood No Growth after 72 hours
[2021-02-15 21:06] LABS: Glucose,Whole Blood 131 mg/dL (75-99)
[2021-02-15] MEDS: ACETAMINOPHEN TAB 325 MG TAB PO PRN (22:19)
[2021-02-15] MEDS: MELATONIN 5 MG TABLET PO SCH (22:19)
[2021-02-16 07:13] LABS: Glucose,Whole Blood 128 mg/dL (75-99)
[2021-02-16] MEDS: INSULIN ASPART (NovoLOG) 100 UNIT/ML VIAL SQ SCH ×4 (07:32→21:32)
[2021-02-16] MEDS: ALBUTEROL HFA INHALER INHALATION SCH ×4 (08:22→20:26)
--- NOTE | 2021-02-16 08:53 | XR ---
EXAMINATION TYPE: XR chest 1V portable DATE OF EXAM: 02/16/2021 COMPARISON: 02/14/2021 HISTORY: Cough TECHNIQUE: Single frontal view of the chest is obtained. FINDINGS: Bilateral infiltrates are stable. Heart is enlarged. Tiny left pleural effusion suspected. No pneumothorax. Prominence of the upper mediastinum on the left noted. Osseous structures are stabl e. IMPRESSION: Stable bilateral infiltrates correlate for pneumonia.
[2021-02-16] MEDS: ZINC SULFATE 220 MG CAP PO SCH (08:59)
[2021-02-16] MEDS: dexAMETHasone 2 MG TAB PO SCH (08:59)
[2021-02-16] MEDS: CHOLECALCIFEROL 25 MCG (1000 IU) TABLET PO SCH (09:00)
[2021-02-16] MEDS: ASCORBIC ACID 500 MG TAB PO SCH (09:00)
[2021-02-16] MEDS: ENOXAPARIN 40 MG/0.4 ML SYRINGE SQ SCH (09:03)
[2021-02-16 09:37] LABS: HCT 49.3 % (39.6-50.0); HGB 14.8 g/dL (13.0-17.0); MCH 29.7 pg (27.0-32.0); MCV 98.8 fL (80.0-97.0); Mean Platelet Volume 9.4 fL (9.5-12.2); Platelet Count 576 X 10*3/uL (140-440); RBC 4.99 X 10*6/uL (4.40-5.60); RDW 14.3 % (11.5-14.5); WBC 11.35 X 10*3/uL (4.50-10.00)
[2021-02-16 09:49] LABS: ALT 142 U/L (10-49); AST 49 U/L (14-35); African American GFR (CKD) 132.1 (60.0-200.0); Albumin/Globulin Ratio 1.22 (1.60-3.17); Alkaline Phosphatase 157 U/L (41-126); BUN/Creat Ratio 38.57 Ratio (12.00-20.00); C Reactive Protein <0.4 mg/dL (0.0-0.8); Calcium 8.8 mg/dL (8.7-10.3); Carbon Dioxide 25.5 mmol/L (21.6-31.8); Chloride 105 mmol/L (96-109); Globulin 3.2 g/dL (1.6-3.3); Glucose 120 mg/dL (70-110); LDH 361 U/L (120-246); Potassium 4.6 mmol/L (3.5-5.5); Sodium 139 mmol/L (135-145); Total Bilirubin 0.8 mg/dL (0.3-1.2); Total Protein 7.1 g/dL (6.2-8.2)
[2021-02-16 12:08] LABS: Glucose,Whole Blood 150 mg/dL (75-99)
--- NOTE | 2021-02-16 15:31 | P.PN ---
Subjective Progress Note Date: 02/16/21 (dleayed charting seen at 1230) Principal diagnosis: shortness of breath Patient is a 46-year-old male with no significant past medical history who presented secondary to shortness of breath and decreased exercise tolerance. In the ER he underwent extensive evaluation. His initial vital signs showed hypoxia of 84% on room air, pulse 133, respiratory rate of 26. Labs showed white blood cell count of 13.2, platelets 715, d-dimer 2.01, sodium 135, glucose 237, lactic acid 2.4, LDH 1544, pro calcitonin 0.29. Initially his COVID testing was negative. He was negative for influenza, Legionella, and RSV. A chest x-ray be revealed extensive bilateral pulmonary infiltrates. CT angio of the chest was negative for any pulmonary embolism. He was seen by pulm and rep eat COVID testing was positive. He was started on decadron, Vit C/D/Zinc. He was given a dose of Toci and convolescent plasma. He continued to have slow improvement in his oxygenation and breathing status. Patient seen and exaomed at bedside. He is still very short of breath with ambulation barely walk to the bathroom and back. This is very distressing and she is typically a runner and runs most days. He denies any chest pain. He cough is minimal. No headache. Eating and drinking well. We discussed that his blood sugar numbers are borderline and could be consistent with diabetes. [facility] General: Ill appearing, no distress, appears at stated age Derm: warm, dry Head: atraumatic, normocephalic, symmetric Eyes: EOMI, no lid lag, anicteric sclera Mouth: no lip lesion, mucus membranes moist Cardiovascular: S1S2 reg, no murmur, positive posterior tibial pulse bilateral, Lungs: Rhonchi bilateral, NO conversational dyspnea , no accessory muscle use Abdominal: soft, nontender to palpation, no guarding, no appreciable organomegaly Ext: no gross muscle atrophy, no edema, no contractures Neuro: CN II-XI grossly intact, no focal neuro deficits Psych: Alert, oriented, appropriate affect COVID 19 pneumonitis, Acute hypoxic respiratory failure - Decadron D # 5 - wean O2 as able patient aware that he needs to requiring less then 5L NC to be discharged - zinc/vit c/vit D - Lovenox - S/P Toci, COnvolescent plasma X1 Newly discovered prediabetes - A1C 6.6 but cannot confirm DM as no fasting glucose about 126 despite being on steroids -Discussed with patient and plan will be for risk factor modification on discharge - outpatient follow-up Transaminitis, fatty infiltration of liver (CT 04/23/20) - likely due to COVID - Follow-up outpatient Thrombocytosis - suspect reactive - follow CBC DVT prophylaxis: SCDs Discussed with: Patient, nursing Anticipated discharge: in AM Anticipated discharge place: home A total of 35 minutes was spent on the care of this complex patient more than 50% of the time was spent in counseling and care coordination. Objective - Vital Signs Vital signs: Vital Signs Temp 98.0 F 02/16/21 13:30 Pulse 110 H 02/16/21 13:30 Resp 20 02/16/21 13:30 BP 117/78 02/16/21 13:30 Pulse Ox 88 L 02/16/21 14:12 Intake & Output 02/15/21 02/16/21 02/16/21 18:59 06:59 18:59 Intake Total 300 Output Total 200 Balance 100 Intake: Oral 300 Output: Urine 200 Other: Voiding Method Urinal Urinal Urinal # Voids 2 - Labs CBC & Chem 7: 02/16/21 04:52 02/16/21 04:52 Labs: Abnormal Lab Results - Last 24 Hours (Table) 02/15/21 02/15/21 02/16/21 Range/Units 17:10 21:05 04:52 WBC (4.50-10.00) X 10*3/uL MCV (80.0-97.0) fL MCHC (32.0-37.0) g/dL Plt Count (140-440) X 10*3/uL MPV (9.5-12.2) fL D-Dimer 1.26 H (<0.60) mg/L FEU BUN/Creatinine Ratio (12.00-20.00) Ratio Glucose (70-110) mg/dL POC Glucose (mg/dL) 161 H 131 H (75-99) mg/dL AST (14-35) U/L ALT (10-49) U/L Alkaline Phosphatase (41-126) U/L Lactate Dehydrogenase (120-246) U/L Albumin/Globulin Ratio (1.60-3.17) g/dL 02/16/21 02/16/21 02/16/21 Range/Units 04:52 04:52 07:10 WBC 11.35 H (4.50-10.00) X 10*3/uL MCV 98.8 H (80.0-97.0) fL MCHC 30.0 L (32.0-37.0) g/dL Plt Count 576 H (140-440) X 10*3/uL MPV 9.4 L (9.5-12.2) fL D-Dimer (<0.60) mg/L FEU BUN/Creatinine Ratio 38.57 H (12.00-20.00) Ratio Glucose 120 H (70-110) mg/dL POC Glucose (mg/dL) 128 H (75-99) mg/dL AST 49 H (14-35) U/L ALT 142 H (10-49) U/L Alkaline Phosphatase 157 H (41-126) U/L Lactate Dehydrogenase 361 H (120-246) U/L Albumin/Globulin Ratio 1.22 L (1.60-3.17) g/dL 02/16/21 Range/Units 12:07 WBC (4.50-10.00) X 10*3/uL MCV (80.0-97.0) fL MCHC (32.0-37.0) g/dL Plt Count (140-440) X 10*3/uL MPV (9.5-12.2) fL D-Dimer (<0.60) mg/L FEU BUN/Creatinine Ratio (12.00-20.00) Ratio Glucose (70-110) mg/dL POC Glucose (mg/dL) 150 H (75-99) mg/dL AST (14-35) U/L ALT (10-49) U/L Alkaline Phosphatase (41-126) U/L Lactate Dehydrogenase (120-246) U/L Albumin/Globulin Ratio (1.60-3.17) g/dL Microbiology - Last 24 Hours (Table) 02/11/21 23:10 Blood Culture - Preliminary Blood No Growth after 96 hours 02/11/21 22:55 Blood Culture - Preliminary Blood No Growth after 96 hours
--- NOTE | 2021-02-16 15:59 | P.PN ---
Subjective Progress Note Date: 02/16/21 Principal diagnosis: COVID-19 pneumonia This is a very pleasant 46-year-old male patient with no significant past medical history. No primary care physician. No home prescribed medications. Presently 14 days ago he developed fever, poor appetite fatigue. The last few days he has had increasing shortness of breath and presented here to the emergency room for the same. Chest x-ray reveals extensive pulmonary infiltrates consistent with RDS. CT angiogram ruled out pulmonary embolism. There is severe bilateral pulmonary infiltrate consistent with pneumonia. White count 13.2. Hemoglobin 14.2. Lymphocytes 10. D-dimer 2.01. Sodium 135. Potassium 4.2. Creatinine 0.71. Initial lactic 2.4. Currently 1.4. AST 71. ALT 1:15. LDH 1544. Troponins negative 2. C-reactive protein 4.0. Influenza screen negative. COVID-19 by PCR not detected. He is seen today in consultation in the emergency room. He is currently sitting up in the stretcher. Awake and alert. In mild respiratory distress. Initially 84% O2 saturations on room air. Currently on 100% nonrebreather mask. T-max 100.4. He's been initiated on dexamethasone, Lovenox, vitamin supplements, bro nchodilators. 0.9 normal saline at 100 ML's per hour. The patient is seen today 02/13/2021 in follow-up in the observation unit. He is currently sitting up in bed. Awake and alert in no acute distress. He is quite dyspneic with minimal conversation, minimal activity. He remains on a nonrebreather mask per his request. He did have some pain from his nose from the nasal cannula. He was outside the window for Remdesivir. His COVID-19 screening follow-up was positive. He received Tocilizumab. Convalescent plasma 1. Remains on Lovenox, dexamethasone, vitamin supplements. 0.9 normal saline at 75 ML's per hour. White count 11.3. Hemoglobin 13.4. D-dimer 1.68. Sodium 141. Potassium 4.5. Creatinine 0.65. AST 93. ALT 93. LDH 1208. C-reactive protein 1.8. The patient is seen today 02/14/2021 follow-up on the observation unit. Currently sitting up in bed. Awake and alert in no acute distress. Breathing a bit easier today compared to yesterday. Still requiring nonrebreather mask. On room air he is 83%. No IV fluids. He did receive Tocilizumab, 1 unit convalescent plasma. Blood cultures reveal no growth. Blood glucose 103. Continued on Lovenox, dexamethasone, vitamin supplements. Chest x-ray continues to show bilateral airspace disease more so on the left lung and right upper lobes. The patient is seen today 02/15/2021 follow-up on the regular medical floor. He is currently resting comfortably in bed. Awake and alert in no acute distress. He is still on the 100% nonrebreather mask maintaining O2 saturations in the mid 90s. He's been afebrile. He did receive Tocilizumab, 1 unit convalescent plasma. Blood cultures reveal no growth. White count 10.8. Hemoglobin 14.3. Sodium 141. Potassium 5.0. Creatinine 0.8. Continued on dexamethasone, Lo venox, vitamin supplements. The patient is seen today 02/16/2021 follow-up on the regular medical floor. He is currently sitting up in bed. Awake and alert in no acute distress. Continues to improve daily. He is currently on 4 L/m per nasal cannula. No worsening shortness of breath, cough or congestion. Chest x-ray reveals stable bilateral infiltrates. White count 11.3. Hemoglobin 14.8. D-dimer 1.26. Sodium 139. Potassium 4.6. Creatinine 0.7. AST 142. ALT 157. LDH 361. C-reactive protein less than 0.4. He did receive tocilizumab and 1 unit of convalescent plasma. Continued on dexamethasone, Lovenox, vitamin supplements. Objective - Vital Signs Vital signs: Vital Signs Temp 98.0 F 02/16/21 13:30 Pulse 110 H 02/16/21 13:30 Resp 20 02/16/21 13:30 BP 117/78 02/16/21 13:30 Pulse Ox 88 L 02/16/21 14:12 Intake & Output 02/15/21 02/16/21 02/16/21 18:59 06:59 18:59 Intake Total 300 Output Total 200 Balance 100 Intake: Oral 300 Output: Urine 200 Other: Voiding Method Urinal Urinal Urinal # Voids 2 - Exam GENERAL EXAM: Alert, 46-year-old gentleman, on 4 L/m per nasal cannula, fairly comfortable in no apparent distress. HEAD: Normocephalic. EYES: Normal reaction of pupils, equal size. NOSE: Clear with pink turbinates. THROAT: No erythema or exudates. NECK: No masses, no JVD. CHEST: No chest wall deformity. LUNGS: Equal air entry with crackles in the bilateral posterior bases. CVS: S1 and S2 normal with no audible murmur, regular rhythm. ABDOMEN: No hepatosplenomegaly, normal bowel sounds, no guarding or rigidity. SPINE: No scoliosis or deformity SKIN: No rashes CENTRAL NERVOUS SYSTEM: No focal deficits, tone is normal in all 4 extremities. EXTREMITIES: There is no peripheral edema. No clubbing, no cyanosis. Peripheral pulses are intact. - Labs CBC & Chem 7: 02/16/21 04:52 02/16/21 04:52 Labs: Abnormal Lab Results - Last 24 Hours (Table) 02/15/21 02/15/21 02/16/21 Range/Units 17:10 21:05 04:52 WBC (4.50-10.00) X 10*3/uL MCV (80.0-97.0) fL MCHC (32.0-37.0) g/dL Plt Count (140-440) X 10*3/uL MPV (9.5-12.2) fL D-Dimer 1.26 H (<0.60) mg/L FEU BUN/Creatinine Ratio (12.00-20.00) Ratio Glucose (70-110) mg/dL POC Glucose (mg/dL) 161 H 131 H (75-99) mg/dL AST (14-35) U/L ALT (10-49) U/L Alkaline Phosphatase (41-126) U/L Lactate Dehydrogenase (120-246) U/L Albumin/Globulin Ratio (1.60-3.17) g/dL 02/16/21 02/16/21 02/16/21 Range/Units 04:52 04:52 07:10 WBC 11.35 H (4.50-10.00) X 10*3/uL MCV 98.8 H (80.0-97.0) fL MCHC 30.0 L (32.0-37.0) g/dL Plt Count 576 H (140-440) X 10*3/uL MPV 9.4 L (9.5-12.2) fL D-Dimer (<0.60) mg/L FEU BUN/Creatinine Ratio 38.57 H (12.00-20.00) Ratio Glucose 120 H (70-110) mg/dL POC Glucose (mg/dL) 128 H (75-99) mg/dL AST 49 H (14-35) U/L ALT 142 H (10-49) U/L Alkaline Phosphatase 157 H (41-126) U/L Lactate Dehydrogenase 361 H (120-246) U/L Albumin/Globulin Ratio 1.22 L (1.60-3.17) g/dL 02/16/21 Range/Units 12:07 WBC (4.50-10.00) X 10*3/uL MCV (80.0-97.0) fL MCHC (32.0-37.0) g/dL Plt Count (140-440) X 10*3/uL MPV (9.5-12.2) fL D-Dimer (<0.60) mg/L FEU BUN/Creatinine Ratio (12.00-20.00) Ratio Glucose (70-110) mg/dL POC Glucose (mg/dL) 150 H (75-99) mg/dL AST (14-35) U/L ALT (10-49) U/L Alkaline Phosphatase (41-126) U/L Lactate Dehydrogenase (120-246) U/L Albumin/Globulin Ratio (1.60-3.17) g/dL Microbiology - Last 24 Hours (Table) 02/11/21 23:10 Blood Culture - Preliminary Blood No Growth after 96 hours 02/11/21 22:55 Blood Culture - Preliminary Blood No Growth after 96 hours Assessment and Plan Assessment: 1 Acute hypoxemic respiratory failure secondary to COVID-19 pneumonia. Outside the window for Remdesivir. Received Tocilizumab. Received convalescent plasma 2 Elevated inflammatory markers secondary to above 3 Mild transaminitis secondary to above 4 Hyperglycemia Plan: The patient was seen and evaluated by Dr. Tejas Schulz, Lovenox, vitamin supplement Currently on 4 L/m per nasal cannula Titrate the FiO2 as tolerated Possible discharge in the a.m. We will continue to follow I, the cosigning physician, performed a history & physical examination of the patient. Lungs sounds coarse crackles in the posterior bases. Maintaining good O2 saturations in the 90s on 4 L/m per nasal cannula. I discussed the assessment and plan of care with my nurse practitioner, Alexandra Farooq. I attest to the above note as dictated by her.
[2021-02-16 17:18] LABS: Glucose,Whole Blood 167 mg/dL (75-99)
[2021-02-16 20:27] LABS: Glucose,Whole Blood 185 mg/dL (75-99)
[2021-02-16] MEDS: ACETAMINOPHEN TAB 325 MG TAB PO PRN (21:32)
[2021-02-16] MEDS: MELATONIN 5 MG TABLET PO SCH (21:32)
[2021-02-17] MEDS: ALBUTEROL HFA INHALER INHALATION SCH ×3 (07:36→15:37)
[2021-02-17 07:55] LABS: Glucose,Whole Blood 105 mg/dL (75-99)
[2021-02-17] MEDS: INSULIN ASPART (NovoLOG) 100 UNIT/ML VIAL SQ SCH ×2 (09:23→13:06)
[2021-02-17] MEDS: CHOLECALCIFEROL 25 MCG (1000 IU) TABLET PO SCH (09:24)
[2021-02-17] MEDS: ASCORBIC ACID 500 MG TAB PO SCH (09:25)
[2021-02-17] MEDS: ZINC SULFATE 220 MG CAP PO SCH (09:25)
[2021-02-17] MEDS: dexAMETHasone 2 MG TAB PO SCH (09:25)
[2021-02-17] MEDS: ENOXAPARIN 40 MG/0.4 ML SYRINGE SQ SCH (09:27)
[2021-02-17 12:43] LABS: Glucose,Whole Blood 172 mg/dL (75-99)
--- NOTE | 2021-02-17 14:17 | P.DS ---
Providers Date of admission: 02/12/21 00:56 Expected date of discharge: 02/17/21 Attending physician: Serene Richmond MD Consults: 02/12/21 00:55 Consult Physician Routine Consulting Provider: Gerard Feldman Consult Reason/Comments: covid Do you want consulting provider notified?: Yes Primary care physician: Stated None Hospital Course: Discharge Diagnosis: COVID-19 pneumonitis Acute hypoxic respiratory failure Prediabetes Transaminitis, fatty infiltration of the liver on prior CT Thrombocytosis Hospital Course: Patient is a 46-year-old male with no significant past medical history who presented secondary to shortness of breath and decreased exercise tolerance. In the ER he underwent extensive evaluation. His initial vital signs showed hypoxia of 84% on room air, pulse 133, respiratory rate of 26. Labs showed white blood cell count of 13.2, platelets 715, d-dimer 2.01, sodium 135, glucose 237, lactic acid 2.4, LDH 1544, pro calcitonin 0.29. Initially his COVID testing was negative. He was negative for influenza, Legionella, and RSV. A chest x-ray be revealed extensive bilateral pulmonary infiltrates. CT angio of the chest was negative for any pulmonary embolism. He was seen by pulm and repeat COVID testing was positive. He was started on decadron, Vit C/D/Zinc. He was given a dose of Toci and convolescent plasma. He continued to have slow improvement in his oxygenation and breathing status. He was able to be weaned down to 5 L nasal cannula and was determined stable for discharge home. [id number] has 30 days oxygen that will be supplied by [facility], he will complete 4 more days of Decadron, Aspirin for 30 days, Vit D for 30 days. Needs to follow-up regarding possible prediabetes, Follow-up with Dr. Lazaro in 4-6 weeks. Patient seen and examined at bedside. Feeling much better, he would ambulate but still getting slightly winded. Breathing is better than it was before. He understands the importance of follow-up and [facility]. Vital signs reviewed and stable. General: non toxic, no distress, appears at stated age Derm: warm, dry Head: atraumatic, normocephalic, symmetric Eyes: EOMI, no lid lag, anicteric sclera Mouth: no lip lesion, mucus membranes moist Cardiovascular: S1S2 reg, no murmur, positive posterior tibial pulse bilateral, Lungs: Coarse breath sounds bilateral bilateral, no rhonchi, no rales , no accessory muscle use Abdominal: soft, nontender to palpation, no guarding, no appreciable organomegaly Ext: no gross muscle atrophy, no edema, no contractures Neuro: CN II-XI grossly intact, no focal neuro deficits Psych: Alert, oriented, appropriate affect A total of 45 minutes of time were spent preparing this complex discharge summary . Patient Condition at Discharge: Stable Plan - Discharge Summary Discharge Rx Participant: No New Discharge Prescriptions: New Aspirin [Adult Low Dose Aspirin EC] 81 mg PO DAILY #30 tablet. Dexamethasone [Decadron] 6 mg PO DAILY #4 tablet Famotidine [Pepcid] 20 mg PO DAILY #10 tablet Albuterol Inhaler [Ventolin Hfa Inhaler] 2 puff INHALATION RT-QID #1 inhaler Cholecalciferol [Vitamin D3 (25 Mcg = 1000 Iu)] 125 mcg PO DAILY #120 tablet Discontinued Ascorbic Acid [Vitamin C] 1,000 mg PO DAILY Discharge Medication List Albuterol Inhaler [Ventolin Hfa Inhaler] 2 puff INHALATION RT-QID #1 inhaler 02/17/21 [Rx] Aspirin [Adult Low Dose Aspirin EC] 81 mg PO DAILY #30 tablet. 02/17/21 [Rx] Cholecalciferol [Vitamin D3 (25 Mcg = 1000 Iu)] 125 mcg PO DAILY #120 tablet 02/17/21 [Rx] Dexamethasone [Decadron] 6 mg PO DAILY #4 tablet 02/17/21 [Rx] Famotidine [Pepcid] 20 mg PO DAILY #10 tablet 02/17/21 [Rx] Follow up Appointment(s)/Referral(s): None,Stated [Primary Care Provider] - 1-2 days Carrington Lazaro DO [Doctor of Osteopathic Medicine] - 1 Week [facility] [REFERRING] - 1 Week Activity/Diet/Wound Care/Special Instructions: Activity: as tolerated Diet: Carb consistent Discharge Disposition: HOME SELF-CARE
[2021-02-17 15:32] VITALS: BP 128/76; PULSE 118; RESP 20; TEMP 98.1
--- NOTE | 2021-02-17 15:35 | P.PN ---
Subjective Progress Note Date: 02/17/21 46-year-old male patient with COVID-19 related pneumonia was currently being seen for a follow-up. The patient is currently on 4 L about 2 by nasal cannula. His been in the hospital for the past 5 days at least and the patient completed Remdesivir and he is currently on Decadron. Doing well. No specific complaints. He also received convalescent plasma and he received Tocilizumab. No nausea. No vomiting. No diarrhea. No abdominal pain. No chest pain. No other new complaints otherwise for now. No new labs are available from today. Is afebrile. He did have a mild component of transaminitis related to COVID-19 related pneumonia. His LDH is up to 361 from yesterday and his CRP is less than 0.4. Objective - Vital Signs Vital signs: Vital Signs Temp 97.8 F 02/17/21 08:00 Pulse 100 02/17/21 08:00 Resp 18 02/17/21 08:00 BP 112/76 02/17/21 08:00 Pulse Ox 93 L 02/17/21 02:00 Intake & Output 02/16/21 02/17/21 02/17/21 18:59 06:59 18:59 Intake Total 300 Output Total 500 Balance -500 300 Intake: Oral 300 Output: Urine 500 Other: Voiding Method Urinal Urinal Urinal # Voids 4 1 # Bowel Movements 1 1 - Exam GENERAL EXAM: Alert, 46-year-old gentleman, on 4 L/m per nasal cannula, fairly comfortable in no apparent distress. HEAD: Normocephalic. EYES: Normal reaction of pupils, equal size. NOSE: Clear with pink turbinates. THROAT: No erythema or exudates. NECK: No masses, no JVD. CHEST: No chest wall deformity. LUNGS: Equal air entry with crackles in the bilateral posterior bases. CVS: S1 and S2 normal with no audible murmur, regular rhythm. ABDOMEN: No hepatosplenomegaly, normal bowel sounds, no guarding or rigidity. SPINE: No scoliosis or deformity SKIN: No rashes CENTRAL NERVOUS SYSTEM: No focal deficits, tone is normal in all 4 extremities. EXTREMITIES: There is no peripheral edema. No clubbing, no cyanosis. Peripheral pulses are intact. - Labs CBC & Chem 7: 02/16/21 04:52 02/16/21 04:52 Labs: Abnormal Lab Results - Last 24 Hours (Table) 02/16/21 02/16/21 02/17/21 Range/Units 17:16 20:26 07:53 POC Glucose (mg/dL) 167 H 185 H 105 H (75-99) mg/dL 02/17/21 Range/Units 12:06 POC Glucose (mg/dL) 172 H (75-99) mg/dL Microbiology - Last 24 Hours (Table) 02/11/21 23:10 Blood Culture - Preliminary Blood No Growth after 120 hours 02/11/21 22:55 Blood Culture - Preliminary Blood No Growth after 120 hours Assessment and Plan Plan: 1 Acute hypoxemic respiratory failure secondary to COVID-19 pneumonia. Outside the window for Remdesivir. Received Tocilizumab. Received convalescent plasma 2 Elevated inflammatory markers secondary to above 3 Mild transaminitis secondary to above 4 Hyperglycemia Plan: The patient is clinically stable, still short of breath and not completely recovered, yet again finished and completed his treatment at home and he is stable for discharge from the pulmonary standpoint. No new issues for now. The patient is currently on 4 L and he'll be going home on 4 L 02 by nasal cannula and he will have a home pulse oximeter he will check his pulse ox at home and he will completed course of Decadron outpatient basis. Continue Decadron, Lovenox, vitamin supplement Currently on 4 L/m per nasal cannula Titrate the FiO2 as tolerated Charge home today Follow up on outpatient basis
== END 2021-02-17 16:27 | disposition home or self-care (01) | DRG 177 ==
LOC: EC 20:56 → 4SSUR 02-12 00:56 → 1SOBS 02-12 09:24 → 6NMEDSUR 02-14 11:37
PROVIDERS: ADMIT Internal Medicine; ATTEND Internal Medicine
PROC: XW033H5 Introduction of Tocilizumab into Peripheral Vein, Percutaneous Approach, New Technology Group 5 (ICD-10-PCS; principal; 2021-02-12)
PROC: XW13325 Transfusion of Convalescent Plasma (Nonautologous) into Peripheral Vein, Percutaneous Approach, New Technology Group 5 (ICD-10-PCS; principal; 2021-02-12)
DX: U07.1 COVID-19 (principal); J12.82 Pneumonia due to coronavirus disease 2019; J96.01 Acute respiratory failure with hypoxia; E87.2 Acidosis; K76.0 Fatty (change of) liver, not elsewhere classified; R73.03 Prediabetes; R73.9 Hyperglycemia, unspecified; T38.0X5A Adverse effect of glucocorticoids and synthetic analogues, initial encounter; Z87.442 Personal history of urinary calculi
CPT/HCPCS: 36415; 71045; 71275; 80048; 80053; 82728; 83036; 83605; 83615; 83735; 83880; 84100; 84145; 84484; 85025; 85027; 85379; 85610; 85730; 86140; 86850; 86900; 86901; 87040; 87449; 87636; 93005; 94640; 94667; 94668; 96361; 96374; 96375; 99285

== ENCOUNTER 2024-03-26 22:25 | Emergency (ER) | payer OTHER ==
[2024-03-26 22:29] VITALS: RESP 16; TEMP 98
[2024-03-26 22:51] LABS: Basophils # (A) 0.1 k/uL (0-0.2); Basophils % (A) 1 %; Eosinophils # (A) 0.2 k/uL (0-0.7); Eosinophils % (A) 2 %; HCT 46.9 % (39.0-53.0); Lymphocytes # (A) 2.3 k/uL (1.0-4.8); Lymphocytes % (A) 32 %; MCH 29.8 pg (25.0-35.0); MCV 93.1 fL (80.0-100.0); Mean Platelet Volume 9.1; Monocytes # (A) 0.4 k/uL (0-1.0); Monocytes % (A) 6 %; Neutrophils # (A) 4.1 k/uL (1.3-7.7); Neutrophils % (A) 58 %; Platelet Count 206 k/uL (150-450); RBC 5.04 m/uL (4.30-5.90); RDW 12.7 % (11.5-15.5); WBC 7.1 k/uL (3.8-10.6)
[2024-03-26 23:01] LABS: INR 0.9 (<1.2); Partial Thromboplastin Time 23.8 sec (22.0-30.0); Prothrombin Time 10.4 sec (10.0-12.5)
[2024-03-26 23:11] LABS: ALT 44 U/L (4-49); AST 28 U/L (17-59); African American GFR (CKD) >90 (>60 ml/min/1.73 sqM); Albumin 4.4 g/dL (3.5-5.0); Alkaline Phosphatase 97 U/L (38-126); Anion Gap 6 mmol/L; Blood Urea Nitrogen 15 mg/dL (9-20); Calcium 9.1 mg/dL (8.4-10.2); Carbon Dioxide 27 mmol/L (22-30); Chloride 108 mmol/L (98-107); Glucose 177 mg/dL (74-99); Non-African American GFR(CKD) >90 (>60 ml/min/1.73 sqM); Potassium 3.9 mmol/L (3.5-5.1); Sodium 141 mmol/L (137-145); Total Bilirubin 0.7 mg/dL (0.2-1.3); Total Protein 6.8 g/dL (6.3-8.2)
--- NOTE | 2024-03-26 23:44 | ED ---
General Adult HPI - General Chief complaint: GI Bleed Stated complaint: Blood in Stool Time Seen by Provider: 03/26/24 23:15 Source: patient, RN notes reviewed, old records reviewed Mode of arrival: ambulatory Limitations: no limitations - History of Present Illness Initial comments: Patient is a 49-year-old male with past medical history remarkable for IBS who presents emergency department complaining of an episode of GI bleed. States he had bright red blood per rectum with 1 bowel movement approximately 1 hour ago. This is never occurred previously. Endorses typical chronic crampy abdominal pain with his IBS which is unchanged from baseline. Is not on blood thinners. Denies any abdominal surgeries. Denies any nausea or vomiting. Denies any fever. Has no other acute complaints at this time. Presents for further evaluation at this time. Workup started in triage. I evaluated the patient when he was placed in a room. - Related Data Previous Rx's Medication Instructions Recorded Albuterol Inhaler [Ventolin Hfa 2 puff INHALATION RT-QID #1 inhaler 02/17/21 Inhaler] Aspirin [Adult Low Dose Aspirin EC] 81 mg PO DAILY #30 tablet. 02/17/21 Cholecalciferol [Vitamin D3 (25 125 mcg PO DAILY #120 tablet 02/17/21 Mcg = 1000 Iu)] Famotidine [Pepcid] 20 mg PO DAILY #10 tablet 02/17/21 dexAMETHasone [Decadron] 6 mg PO DAILY #4 tablet 02/17/21 Pantoprazole Sodium [Protonix] 20 mg PO DAILY 14 Days #14 tab 03/26/24 Allergies Allergy/AdvReac Type Severity Reaction Status Date / Time No Known Allergies Allergy Verified 02/11/21 22:21 Review of Systems ROS Statement: Those systems with pertinent positive or pertinent negative responses have been documented in the HPI. Review of Systems: CONST: Denies fever EYES: Denies blurry vision ENT: Denies nasal congestion C/V: Denies Chest pain RESP: Denies shortness of breath GI: Endorses chronic abdominal pain unchanged from baseline. Endorses 1 episode of bright red blood per rectum. : Denies dysuria SKIN: Denies rash. MSK: Denies joint pain. NEURO: Denies headache ROS Other: All systems not noted in ROS Statement are negative. Past Medical History Past Medical History: No Reported History Additional Past Medical History / Comment(s): Nephrolithiasis-passed stones on his own. History of Any Multi-Drug Resistant Organisms: None Reported Past Surgical History: Orthopedic Surgery Additional Past Surgical History / Comment(s): L shoulder rotator cuff repair Past Anesthesia/Blood Transfusion Reactions: Postoperative Nausea & Vomiting (PONV) Past Psychological History: No Psychological Hx Reported Smoking Status: Never smoker - Past Family History Father History Unknown: Yes Mother Family Medical History: No Reported History Additional Family Medical History / Comment(s): Mother is healthy General Exam - General Exam Comments Initial Comments: General: Appears in no acute distress. HEAD: Normal with no signs of head trauma. EYES: PERRLA, EOMI, conjunctiva normal, no discharge. ENT: Hearing grossly intact, normal oropharynx. RESPIRATORY: Clear breath sounds bilaterally. No wheezes, rales, or rhonchi. C/V: Regular rate and rhythm. S1 and S2 auscultated, no edema, peripheral pulses 2+ and intact throughout ABD: Abd is soft, nontender, nondistended. No guarding, rebound tenderness, peritoneal signs. Rectal exam performed by myself. Good rectal tone. Light brown stool. No gross blood. No evidence of hemorrhoids. No bright red blood. EXT: Normal range of motion, no obvious deformity SKIN: No rashes or lesions observed on exposed skin. NEURO: Alert and oriented x 4. Limitations: no limitations Course Vital Signs 03/26/24 22:26 Temperature 98 F Pulse Rate 89 Respiratory 16 Rate Blood Pressure 144/81 O2 Sat by Pulse 98 Oximetry Medical Decision Making - Medical Decision Making Was pt. sent in by a medical professional or institution (, PA, FOREIGN AGENT, urgent care, hospital, or penitentiary...) When possible be specific @ -No Did you speak to anyone other than the patient for history (EMS, parent, family, police, friend...)? What history was obtained from this source @ -No Did you review nursing and triage notes (agree or disagree)? Why? @ -I reviewed and agree with nursing and triage notes Were old charts reviewed (outside hosp., previous admission, EMS record, old EKG, old radiological studies, urgent care reports/EKG's, penitentiary records)? Report findings @ -No old charts were reviewed Differential Diagnosis (chest pain, altered mental status, abdominal pain women, abdominal pain men, vaginal bleeding, weakness, fever, dyspnea, syncope, headache, dizziness, GI bleed, back pain, seizure, CVA, palpatations, mental health, musculoskeletal)? @ -Differential Abdominal Pain Men: Appendicitis, cholecystitis, diverticulosis, ischemic bowel, pancreatitis, hepatitis, UTI, gastroenteritis, AAA, incarcerated hernia, bowel obstruction, constipation, inflammatory bowel, hepatitis, peptic ulcer disease, splenic infarction, perforated viscus, testicular torsion, this is not meant to be an all-inclusive list EKG interpreted by me (3pts min.). @ -None done X-rays interpreted by me (1pt min.). @ -None done CT interpreted by me (1pt min.). @ -None done U/S interpreted by me (1pt. min.). @ -None done What testing was considered but not performed or refused? (CT, X-rays, U/S, labs)? Why? @ -I offered CT imaging of the abdomen pelvis which was declined by the patient at this time. What meds were considered but not given or refused? Why? @ -None Did you discuss the management of the patient with other professionals (professionals i.e. , PA, FOREIGN AGENT, lab, RT, psych nurse, social sciences instructor, chief deputy coroner, teacher, precinct commanding officer, case briefer)? Give summary @ -No Was smoking cessation discussed for >3mins.? @ -No Was critical care preformed (if so, how long)? @ -No Were there social determinants of health that impacted care today? How? (Homelessness, low income, unemployed, alcoholism, drug addiction, transportation, low edu. Level, literacy, decrease access to med. care, fpc, rehab)? @ -No Was there de-escalation of care discussed even if they declined (Discuss DNR or withdrawal of care, Hospice)? DNR status @ -No What co-morbidities impacted this encounter? (DM, HTN, Smoking, COPD, CAD, Cancer, CVA, ARF, Chemo, Hep., AIDS, mental health diagnosis, sleep apnea, morbid obesity)? @ -IBS Was patient admitted / discharged? Hospital course, mention meds given and route, prescriptions, significant lab abnormalities, going to OR and other pertinent info. @ -Based on the patient's presentation and physical exam, presents emergency department complaining of 1 episode of bright red blood per rectum with a bowel movement shortly prior to arrival. Has no other acute complaints. Workup completed in triage. I evaluated the patient when he was placed in a room. Laboratory studies unremarkable including normal coags, as well as normal hemoglobin. Patient is otherwise asymptomatic. I did recommend a rectal exam which was performed and was unremarkable. No gross blood. Good rectal tone. I also recommended CT imaging if he would like, as he has chronic abdominal pain and this 1 episode of bleeding however patient declines at this time. I believe this is reasonable due to patient having normal labs and no acute complaints at this time with normal vital signs. He will be given a dose of Protonix with instructions to follow-up with Dr. Lanier and to obtain a colonoscopy which she has not had. He was in agreement this plan. Strict return precautions discussed. I believe patient is a safe discharge home at this time as he is not on blood thinners, had 1 episode of blood in the stool, no gross blood on exam, with normal vital signs and normal labs. He was in agreement this plan. I will provide the patient with a prescription for Protonix. I instructed the patient to follow up with their PCP in the next 1-3 days. I provided contact information for follow up with Yann[facility]. I explained that the patient should retu rn to the emergency department if they experience any worsening symptoms. Strict return precautions were discussed with the patient. The patient expressed understanding of these instructions. I answered all questions that the patient had. The patient was discharged home in good condition with their prescriptions and follow up information. Undiagnosed new problem with uncertain prognosis? @ -No Drug Therapy requiring intensive monitoring for toxicity (Heparin, Nitro, Insulin, Cardizem)? @ -No Were any procedures done? @ -No Diagnosis/symptom? @ -Blood in stool Acute, or Chronic, or Acute on Chronic? @ -Acute Uncomplicated (without systemic symptoms) or Complicated (systemic symptoms)? @ -Uncomplicated Side effects of treatment? @ -No Exacerbation, Progression, or Severe Exacerbation? @ -No Poses a threat to life or bodily function? How? (Chest pain, [place], CO, pneumonia, PE, COPD, DKA, ARF, appy, cholecystitis, CVA, Diverticulitis, Homicidal, Suicidal, threat to staff... and all critical care pts) @ -Unlikely - Lab Data Result diagrams: 03/26/24 22:43 03/26/24 22:43 Lab Results 03/26/24 03/26/24 03/26/24 Range/Units 22:38 22:43 22:43 WBC 7.1 (3.8-10.6) k/uL RBC 5.04 (4.30-5.90) m/uL Hgb 15.0 (13.0-17.5) gm/dL Hct 46.9 (39.0-53.0) % MCV 93.1 (80.0-100.0) fL MCH 29.8 (25.0-35.0) pg MCHC 32.0 (31.0-37.0) g/dL RDW 12.7 (11.5-15.5) % Plt Count 206 (150-450) k/uL MPV 9.1 Neutrophils % 58 % Lymphocytes % 32 % Monocytes % 6 % Eosinophils % 2 % Basophils % 1 % Neutrophils # 4.1 (1.3-7.7) k/uL Lymphocytes # 2.3 (1.0-4.8) k/uL Monocytes # 0.4 (0-1.0) k/uL Eosinophils # 0.2 (0-0.7) k/uL Basophils # 0.1 (0-0.2) k/uL PT 10.4 (10.0-12.5) sec INR 0.9 (<1.2) APTT 23.8 (22.0-30.0) sec Sodium (137-145) mmol/L Potassium (3.5-5.1) mmol/L Chloride (98-107) mmol/L Carbon Dioxide (22-30) mmol/L Anion Gap mmol/L BUN (9-20) mg/dL Creatinine (0.66-1.25) mg/dL Est GFR (CKD-EPI)AfAm (>60 ml/min/1.73 sqM) Est GFR (CKD-EPI)NonAf (>60 ml/min/1.73 sqM) Glucose (74-99) mg/dL Calcium (8.4-10.2) mg/dL Total Bilirubin (0.2-1.3) mg/dL AST (17-59) U/L ALT (4-49) U/L Alkaline Phosphatase (38-126) U/L Total Protein (6.3-8.2) g/dL Albumin (3.5-5.0) g/dL Blood Type O Positive Blood Type Recheck O Pos Bld Type Recheck Status No Antibody Screen NEGATIVE Spec Expiration Date 03/29/2024 - 233703/26/24 Range/Units 22:43 WBC (3.8-10.6) k/uL RBC (4.30-5.90) m/uL Hgb (13.0-17.5) gm/dL Hct (39.0-53.0) % MCV (80.0-100.0) fL MCH (25.0-35.0) pg MCHC (31.0-37.0) g/dL RDW (11.5-15.5) % Plt Count (150-450) k/uL MPV Neutrophils % % Lymphocytes % % Monocytes % % Eosinophils % % Basophils % % Neutrophils # (1.3-7.7) k/uL Lymphocytes # (1.0-4.8) k/uL Monocytes # (0-1.0) k/uL Eosinophils # (0-0.7) k/uL Basophils # (0-0.2) k/uL PT (10.0-12.5) sec INR (<1.2) APTT (22.0-30.0) sec Sodium 141 (137-145) mmol/L Potassium 3.9 (3.5-5.1) mmol/L Chloride 108 H (98-107) mmol/L Carbon Dioxide 27 (22-30) mmol/L Anion Gap 6 mmol/L BUN 15 (9-20) mg/dL Creatinine 0.87 (0.66-1.25) mg/dL Est GFR (CKD-EPI)AfAm >90 (>60 ml/min/1.73 sqM) Est GFR (CKD-EPI)NonAf >90 (>60 ml/min/1.73 sqM) Glucose 177 H (74-99) mg/dL Calcium 9.1 (8.4-10.2) mg/dL Total Bilirubin 0.7 (0.2-1.3) mg/dL AST 28 (17-59) U/L ALT 44 (4-49) U/L Alkaline Phosphatase 97 (38-126) U/L Total Protein 6.8 (6.3-8.2) g/dL Albumin 4.4 (3.5-5.0) g/dL Blood Type Blood Type Recheck Bld Type Recheck Status Antibody Screen Spec Expiration Date Disposition Clinical Impression: Blood in stool Disposition: HOME SELF-CARE Condition: Good Instructions (If sedation given, give patient instructions): Gastrointestinal Bleeding (ED) Prescriptions: Pantoprazole Sodium [Protonix] 20 mg PO DAILY 14 Days #14 tab Is patient prescribed a controlled substance at d/c from ED?: No Referrals: [facility] [Primary Care Provider] - 1-2 days Madelaine Lanier MD [STAFF PHYSICIAN] - 1-2 days Time of Disposition: 23:44
[2024-03-26] MEDS: PANTOPRAZOLE 40 MG/10 ML VIAL IVP STA (23:56)
[2024-03-27 01:02] VITALS: BP 136/81; PULSE 78
== END 2024-03-26 23:50 | disposition home or self-care (01) ==
LOC: EC 22:25
DX: K92.1 Melena (principal)
CPT/HCPCS: 36415; 86900; 86901; 80053; 85025; 85610; 85730; 86850; 99285; 96374; C9113